=== PATIENT | female | born 1945 | race Caucasian/White ===

== ENCOUNTER → 2017-07-24 16:25 | Outpatient (CLI) | payer MEDICARE, SELFPAY ==
--- NOTE | 2017-07-24 16:36 | RAD_ITS ---
STUDY: X-RAY - ABDOMEN/PELVIS REASON FOR EXAM: Female, 71 years old. Abdominal pain. TECHNIQUE: AP supine and upright views of the abdomen and pelvis. COMPARISON: None. FINDINGS: Normal visualized lung bases. There is a moderate amount of colonic fecal material. There are nonspecific gaseous small bowel loops and colon. There is no demonstrated free abdominal air. The visualized liver, spleen and kidneys are grossly normal in size. There are surgical sutures in the mid abdomen and upper pelvic region. Normal visualized osseous structures. RAD/Abd Inc Decub and/or Erect IMPRESSION: Fecal retention. Nonspecific gas pattern. Electronically Signed: David Billings MD at 1:14 EST Tel , Service support ,
[2017-07-24 18:06] LABS: Absolute Neutrophil Count 3.9 X10^3/uL (2.0-7.7); Basophil# 0.02 X10^3/uL; Basophil% 0.3 % (0-1); Eosinophil# 0.06 X10^3/uL; Eosinophils% 0.9 % (0-5); Hematocrit 40.7 % (37-47); Hemoglobin 13.2 g/dl (12.0-15.0); Lymphocyte % 33.3 % (19-41); Mean Corp Hgb Conc 32.4 g/gl (32-36); Mean Corpuscular Hgb 30.3 pg (27.0-32.0); Mean Corpuscular Volume 93.3 fL (81-99); Mean Platelet Vol. 10.9 fl (6.2-12.0); Monocyte# 0.67 X10^3/uL; Monocyte% 9.7 % (0-10); Neutrophil # 3.86 X10^3/uL (2.7-7.7); Neutrophil % 55.8 % (47-70); Platelet Count 220 K/mm3 (150-450); RBC Distribution Width CV 13.3 % (11.6-14.6); RBC Distribution Width SD 45.1 fl (35.1-43.9); Red Blood Count 4.36 M/mm3 (4.2-5.4); White Blood Count 6.9 K/mm3 (4.4-11.0)
[2017-07-24 18:07] LABS: POSITIVE COUNT NO; POSITIVE DIFFERENTIAL NO; POSITIVE MORPHOLOGY NO
[2017-07-24 18:41] LABS: AST(SGOT) 17 U/L (15-37); Alanine Aminotransfer ALT/SGPT 23 U/L (13-56); Albumin, Serum 3.8 g/dL (3.2-5.0); Alkaline Phosphatase 59 U/L (45-117); Amylase 51 U/L (25-115); Anion Gap 7 (5-15); BUN 22 mg/dL (7-18); BUN/Creat Ratio 33.1 RATIO (10-20); Calcium,Total 8.9 mg/dL (8.5-10.1); Chloride 99 mmol/L (98-107); Creatinine, Serum 0.66 mg/dL (0.55-1.02); EST Glomerular Filtration Rate 93 mL/min (>60); Est Glom Filt Rate - Afr Amer 113 mL/min (>60); Glucose 103 mg/dL (74-106); Lipase 117 U/L (73-393); Potassium 4.1 mmol/L (3.5-5.1); Protein, Total 7.8 g/dL (6.4-8.2); Sodium Level 135 mmol/L (136-145); Thyroid Stim Hormone (TSH) 1.89 uIU/mL (0.358-3.74)
== END ==
PROVIDERS: Family Provider Family Medicine; PCP Family Medicine; Visit Provider Family Medicine
DX: R10.9 Unspecified abdominal pain (principal); R03.0 Elevated blood-pressure reading, without diagnosis of hypertension
CPT/HCPCS: 36415; 74019; 80053; 82150; 83690; 84443; 85025

== ENCOUNTER → 2017-08-28 12:25 | Outpatient (CLI) | payer MEDICARE, SELFPAY ==
--- NOTE | 2017-08-28 12:30 | HPBI_ITS ---
MAMMOGRAPHY - BILATERAL SCREENING REASON FOR EXAM: Female, 71 years old. Routine annual screening examination. PERTINENT HISTORY: Non-contributory. TECHNIQUE: Digital bilateral breast sondra (3D mammographic acquisition) in the CC and MLO projections. 2-D mediolateral oblique (MLO) and craniocaudad (CC) views of both breasts were obtained. CAD: Full Field Digital Mammography with Computer Added Detection was performed. COMPARISON: Comparison is made with prior study dated July 28, 2016 and April 06, 2015. FINDINGS: Breast Composition: The breasts are heterogeneously dense, which may obscure small masses. There are no dominant masses or suspicious calcifications. No other significant abnormalities are identified. There has been no significant change since the prior study. HPBI/SCREENING MAMM (CAD), BILAT IMPRESSION: Stable bilateral screening mammogram. Yearly follow-up mammogram recommended. (A) ASSESSMENT CATEGORY: BIRADS Category 1: Negative. A letter regarding these results will be sent to the patient by the facility within 30 days. Approximately 10% of breast cancers are not detected by mammography. A normal mammogram should not delay biopsy of a clinically suspicious abnormality. [id number] Electronically Signed: Bladimir Clark MD at 13:42 EDT Tel [phone], Service support ,
== END ==
PROVIDERS: Family Provider Family Medicine; PCP Family Medicine; Visit Provider Family Medicine
DX: Z12.31 Encounter for screening mammogram for malignant neoplasm of breast (principal)
CPT/HCPCS: 77063; 77067

== ENCOUNTER → 2017-10-24 09:32 | Outpatient (CLI) | payer MEDICARE, SELFPAY ==
--- NOTE | 2017-10-24 09:35 | BD_ITS ---
STUDY: DUAL ENERGY X-RAY ABSORPTIOMETRY / DXA REASON FOR EXAM: Female, 72 years old. The patient is postmenopausal. Loss of height. TECHNIQUE: Bone Mineral Density (BMD) measurements of lumbar spine and bilateral hips were obtained. COMPARISON: Comparison is made with prior study dated December 12, 2012. FINDINGS: Lumbar Spine (L1-L4): g/cm2 (0.791) / T-score (-3.2) / Z-score (-1.6) Findings are suggestive of osteoporosis with a high fracture risk. Left Femur Total: g/cm2 (0.797) / T-score (-1.7) / Z-score (-0.2) Left Femoral Neck: g/cm2 (0.744) / T-score (-2.1) / Z-score (-0.4) Right Femur Total: g/cm2 (0.776) / T-score (-1.8) / Z-score (-0.3) Right Femoral Neck: g/cm2 (0.726) / T-score (-2.2) / Z-score (-0.5) The T-Scores on the most recent prior examination were: Lumbar Spine (L1-L4): There has been worsening of bone density since the previous examination. Left Femur Total: which represents a worsening of 1.0%. Right Femur Total: which represents a worsening of 3.7%. BD/Dexa Bone Density Study IMPRESSION: The patient is considered osteoporotic as outlined below according to World [place] Organization (WHO) criteria with a high fracture risk. There has been worsening of bone density since the previous examination. Reference Information: The T-score is the number of standard deviations above or below the standard which is normal for young adults at their peak bone mineral density. The World Health Organization (WHO) interprets the T-scores as follows: Above -1 Normal bone density Between -1 and -2.5 Osteopenia Equal to / or below -2.5 Osteoporosis As a practical clinical guideline, osteopenia may be graded as follows: Mild -1 through -1.5 Moderate -1.6 through -2.0 Severe -2.1 through -2.4 The Z-score is the number of standard deviations above or below age-matched controls. A Z-score of less than -1.5 would be considered abnormal. References: 1. NIH Osteoporosis and Related Bone Diseases http://www.osteo.org 2. International Society for Clinical Densitometry http://www.iscd.org 3. National Osteoporosis Foundation http://www.nof.org Electronically Signed: Bladimir Clark MD at 13:43 EDT Tel [phone], Service support ,
== END ==
PROVIDERS: Family Provider Family Medicine; PCP Family Medicine; Visit Provider Family Medicine
DX: Z00.00 Encounter for general adult medical examination without abnormal findings (principal); Z78.0 Asymptomatic menopausal state
CPT/HCPCS: 77080

== ENCOUNTER → 2017-10-30 08:35 | Outpatient (CLI) | payer MEDICARE, SELFPAY ==
[2017-10-30 10:35] LABS: Anion Gap 7 (5-15); BUN 20 mg/dL (7-18); BUN/Creat Ratio 30.3 RATIO (10-20); Calcium,Total 8.8 mg/dL (8.5-10.1); Chloride 103 mmol/L (98-107); Cholesterol 180 mg/dL (200); Creatinine, Serum 0.66 mg/dL (0.55-1.02); EST Glomerular Filtration Rate 94 mL/min (>60); Est Glom Filt Rate - Afr Amer 113 mL/min (>60); Glucose 82 mg/dL (74-106); High Density Lipoprotein 65 mg/dL; Potassium 3.7 mmol/L (3.5-5.1); Sodium Level 139 mmol/L (136-145); Thyroid Stim Hormone (TSH) 2.48 uIU/mL (0.358-3.74); Triglycerides 48 mg/dL; Very Low Density Lipoprotein 10 mg/dL (5-40)
[2017-10-31 09:23] LABS: PTHIN 28.5 pg/mL (18.4-80.1)
[2017-10-31 09:32] LABS: Vitamin D,25 Hydroxy 81.3 ng/mL (29.95-100.01)
== END ==
PROVIDERS: Family Provider Family Medicine; PCP Family Medicine; Visit Provider Family Medicine
DX: Z00.00 Encounter for general adult medical examination without abnormal findings (principal); M81.0 Age-related osteoporosis without current pathological fracture; Z13.220 Encounter for screening for lipoid disorders
CPT/HCPCS: 36415; 80048; 80061; 82306; 82330; 83970; 84443

== ENCOUNTER → 2018-01-15 11:48 | Outpatient (CLI) | payer MEDICARE, SELFPAY ==
[2018-01-15 13:57] LABS: Hematocrit 40.3 % (37-47); Hemoglobin 13.4 g/dl (12.0-15.0); Mean Corp Hgb Conc 33.3 g/gl (32-36); Mean Corpuscular Hgb 30.7 pg (27.0-32.0); Mean Corpuscular Volume 92.4 fL (81-99); Mean Platelet Vol. 11.2 fl (6.2-12.0); Platelet Count 210 K/mm3 (150-450); RBC Distribution Width CV 13.3 % (11.6-14.6); RBC Distribution Width SD 45.2 fl (35.1-43.9); Red Blood Count 4.36 M/mm3 (4.2-5.4); White Blood Count 5.4 K/mm3 (4.4-11.0)
[2018-01-15 14:12] LABS: Scan Indicated on CBC? Y/N NO
[2018-01-15 14:21] LABS: Anion Gap 9 (5-15); BUN 13 mg/dL (7-18); BUN/Creat Ratio 20.9 RATIO (10-20); Chloride 99 mmol/L (98-107); Creatinine, Serum 0.62 mg/dL (0.55-1.02); EST Glomerular Filtration Rate 100 mL/min (>60); Erythrocyte Sedimentation Rate 22 mm/hr (0-30); Est Glom Filt Rate - Afr Amer 121 mL/min (>60); Glucose 86 mg/dL (74-106); Magnesium 2.3 mg/dL (1.6-2.6); Potassium 3.9 mmol/L (3.5-5.1); Sodium Level 137 mmol/L (136-145); Thyroid Stim Hormone (TSH) 2.38 uIU/mL (0.358-3.74)
[2018-01-16 08:38] LABS: Vitamin B12 412 pg/mL (211-911)
== END ==
PROVIDERS: Family Provider Family Medicine; PCP Family Medicine; Visit Provider Family Medicine
DX: R20.2 Paresthesia of skin (principal)
CPT/HCPCS: 36415; 80048; 82607; 83735; 84443; 85027; 85652

== ENCOUNTER → 2018-01-31 15:53 | Outpatient (CLI) | payer MEDICARE, SELFPAY | PROVIDERS: Family Provider Family Medicine; PCP Family Medicine; Visit Provider Family Medicine | DX: R20.2 Paresthesia of skin (principal) | CPT/HCPCS: 72110 ==

== ENCOUNTER → 2018-02-01 08:56 | Outpatient (CLI) | payer MEDICARE, SELFPAY | PROVIDERS: Family Provider Family Medicine; PCP Family Medicine; Visit Provider Family Medicine | DX: M79.605 Pain in left leg (principal); M79.604 Pain in right leg; I83.90 Asymptomatic varicose veins of unspecified lower extremity | CPT/HCPCS: 93970 ==

== ENCOUNTER 2018-08-16 14:17 | Outpatient (RCR) | payer MEDICARE, SELFPAY ==
--- NOTE | 2018-10-16 12:57 | HP.PTEVAL ---
Patient's Visit Information SANDRITA BERMUDEZ is a 73 year old F referred to Physical Therapy by Donn Castillo MD with a diagnosis of L shoulder pain. Date of Evaluation: 10/16/18 Physical Therapist: Shayne Sky DPT - Visit Plan Frequency: 1x/Week Duration: 1 Week Plan: Pt. was given HEP for RTC strengthening and stability. Pt. desires to work on exercises on own and progress to icnreased resistances as tolerated. - Subjective Findings: Pt. is here today for her initial evaluation with diagnosis of L shoulder pain. Pt. reports having increased pain after doing a lot of yard work. Pt. reports no radiating pain, but has pain if she moves her arm a certain way. Pt. denies N/T no raidating pain. Pt. has reports no neck pain as well. Pt. has not noticied any distal UE weakness. Pt. is back to most ADls and household work, but has incraesed soreness with all attempts. Pt. is hopeful to get back to all activities without limitations. - Pain L shoulder Pain Intensity (Out of 10): 0 Pain Intensity Range: 0, 2 - Objective POSTURE: Pt. has normal posture in stance. Normal shoulder heights. Slight scpaular protraction with increased thoracic kyphosis. PALPTION: pt. has tenderness along subacromial space adn bicipital groove. Pt. has no neck pain with palpation. NEURO: normal throughout. ROM: Neck- full without increase in symptoms. L shoulder- flexion 165deg mild increase NW, abd 145deg mild increase NW, functional ER C5, functional IR L2 mild increase NW. MMT: R shoulder- 4+/5 throughout. L shoulder- flexion 4/5 mild increase NW, abd 4/5 mild increase NW, ER 4+/5 mild increase NW, IR 5-/5 NE, ext 5/5 NE. - Special Tests L Shoulder Drop Sign - IS Test: Negative L Shoulder Empty Can - SS: Positive L Shoulder Belly Press - SupScap: Negative L Shoulder Neer - Impingement: Positive L Shoulder Funez Rhett - Impingement: Positive L Shoulder Biceps Load Test - Labrum: Negative - Goals Goal 1:: Pt. to be I with HEP. Goal Time Frame: 1 Week - Rehabilitation Potential Physical Therapy Diagnosis: Pt. has signs and symptoms consistent with RTC strain. Pt. has subacromial pain, but not marked weakness. Pt. has no radiating neck pain into UE. Pt. would benefit from HEP for shoulder/RTC stability program. Rehabilitation Potential: Excellent - Anticipated Interventions Patient/Client Instruction: Educate patient on: Condition, Plan of Care, Risk Factors, Benefits of Fitness Program For the Purpose of:: To facilitate caregiver knowledge, To improve self management, To prevent re-injury, To improve ability to perform tasks related to life management Therapeutic Exercise to Include: Strength training, Power training, Endurance training, Postural training, Flexibilty training, Passive ROM, Active ROM, Scapular Strength/Stabilization For the Purpose of:: To decrease pain, To decrease swelling/inflammation, To increase ROM, To improve nutrient delivery to tissue Thank you for the opportunity to evaluate your patient. For Medicare and Medicare HMO plans, please review the plan of care and approve it. It will need to be FAXED BACK to us at [phone] for Medicare purposes. For Medicare only, by signing this I certify the plan of care. Please let me know if there are questions or concerns regarding this plan of care. Physician Signature: Date:
--- NOTE | 2019-02-20 14:57 | HP.PT.NRP ---
HP - Discharge Summary (1) - Patient Information SANDRITA BERMUDEZ was seen in my office for initial evaluation on 10/16/18. The following Plan of Care was established for this patient: Initial Frequency: 1x/Week Initial Duration: 1 Week - Anticipated Interventions Patient/Client Instruction: Educate patient on: Condition, Plan of Care, Risk Factors, Benefits of Fitness Program For the Purpose of:: To facilitate caregiver knowledge, To improve self management, To prevent re-injury, To improve ability to perform tasks related to life management Therapeutic Exercise to Include: Strength training, Power training, Endurance training, Postural training, Flexibilty training, Passive ROM, Active ROM, Scapular Strength/Stabilization For the Purpose of:: To decrease pain, To decrease swelling/inflammation, To increase ROM, To improve nutrient delivery to tissue This patient was last seen in our office 08/16/18. Pertinent comments regarding their Physical therapy will appear below: Pt. was seen for her initial evaluation, but has not been seen since. Pt. will be DC from PT at this point intime. At this point I will be discontinuing this patient from physical therapy. I would be happy to see this patient again in the future if found appropriate by the physician. Thank you! Shayne Sky DPT
== END 2018-08-16 19:00 | disposition home or self-care (01) ==
LOC: PT 14:17
PROVIDERS: Family Provider Family Medicine; PCP Family Medicine; Referring Provider Family Medicine; Visit Provider Family Medicine
DX: M75.52 Bursitis of left shoulder (principal)
CPT/HCPCS: 97110; 97161

== ENCOUNTER → 2018-09-27 13:18 | Outpatient (CLI) | payer MEDICARE, SELFPAY ==
--- NOTE | 2018-09-27 13:21 | BI_ITS ---
MAMMOGRAPHY - BILATERAL SCREENING REASON FOR EXAM: Female, 72 years old. Routine annual screening examination. PERTINENT HISTORY: Non-contributory. TECHNIQUE: Digital bilateral breast sondra (3D mammographic acquisition) in the CC and MLO projections. 2-D mediolateral oblique (MLO) and craniocaudad (CC) views of both breasts were obtained. CAD: Full Field Digital Mammography with Computer Added Detection was performed. COMPARISON: Comparison is made with prior examination dated August 28, 2017 and July 28, 2016. FINDINGS: Breast Composition: The breasts are heterogeneously dense, which may obscure small masses. There are no dominant masses or suspicious calcifications. No other significant abnormalities are identified. There has been no significant change since the prior study. BI/SCREENING MAMM (CAD), BILAT IMPRESSION: Stable bilateral screening mammogram. Yearly follow-up mammogram recommended. (A) ASSESSMENT CATEGORY: BIRADS Category 1: Negative. A letter regarding these results will be sent to the patient by the facility within 30 days. Approximately 10% of breast cancers are not detected by mammography. A normal mammogram should not delay biopsy of a clinically suspicious abnormality. [id number] Electronically Signed: Bladimir Clark, at 14:57 EDT , Service support ,
== END ==
PROVIDERS: Family Provider Family Medicine; PCP Family Medicine; Referring Provider Family Medicine; Visit Provider Family Medicine
DX: Z12.31 Encounter for screening mammogram for malignant neoplasm of breast (principal)
CPT/HCPCS: 77063; 77067

== ENCOUNTER → 2019-04-25 15:42 | Outpatient (CLI) | payer MEDICARE, SELFPAY ==
[2019-04-25 18:01] LABS: Anion Gap 7 (5-15); BUN 14 mg/dL (7-18); BUN/Creat Ratio 20.6 RATIO (10-20); Calcium,Total 9.1 mg/dL (8.5-10.1); Chloride 101 mmol/L (98-107); Creatinine, Serum 0.68 mg/dL (0.55-1.02); EST Glomerular Filtration Rate 90 mL/min (>60); Est Glom Filt Rate - Afr Amer 109 mL/min (>60); Glucose 77 mg/dL (74-106); Potassium 3.9 mmol/L (3.5-5.1); Sodium Level 136 mmol/L (136-145); Thyroid Stim Hormone (TSH) 1.75 uIU/mL (0.358-3.74); Vitamin D,25 Hydroxy 39.2 ng/mL (29.95-100.01)
== END ==
PROVIDERS: Family Provider Family Medicine; PCP Family Medicine; Referring Provider Family Medicine; Visit Provider Family Medicine
DX: M81.0 Age-related osteoporosis without current pathological fracture (principal); R53.83 Other fatigue; E55.9 Vitamin D deficiency, unspecified
CPT/HCPCS: 36415; 80048; 82306; 84443

== ENCOUNTER → 2019-08-07 10:44 | Outpatient (CLI) | payer MEDICARE, SELFPAY ==
--- NOTE | 2019-08-07 10:48 | RAD_ITS ---
STUDY: X-RAY - PARANASAL SINUSES REASON FOR EXAM: Female, 73 years old. RHINITIS, LEFT SIDE TECHNIQUE: 3 view(s) of the paranasal sinuses were obtained. COMPARISON: None. FINDINGS: Normal visualized frontal, maxillary, ethmoidal and sphenoid sinuses. Normal visualized facial bones. The soft tissue structures are unremarkable. RAD/Sinuses min 3 Views IMPRESSION: No demonstrated sinus disease. Electronically Signed: Luis Baca MD at 8:29 EST Tel , Service support ,
== END ==
PROVIDERS: PCP Family Medicine; Referring Provider Family Medicine; Visit Provider Family Medicine
DX: J31.0 Chronic rhinitis (principal)
CPT/HCPCS: 70220

== ENCOUNTER → 2019-10-08 10:56 | Outpatient (CLI) | payer MEDICARE, SELFPAY ==
--- NOTE | 2019-10-08 10:58 | BI_ITS ---
MAMMOGRAPHY - BILATERAL SCREENING REASON FOR EXAM: Female, 74 years old. Routine annual screening examination. PERTINENT HISTORY: Non-contributory. TECHNIQUE: Digital bilateral breast leda (3D mammographic acquisition) in the CC and MLO projections. 2-D mediolateral oblique (MLO) and craniocaudad (CC) views of both breasts were obtained. CAD: Full Field Digital Mammography with Computer Added Detection was performed. COMPARISON: Comparison is made with prior examination dated September 27, 2018 and August 28, 2017. FINDINGS: Breast Composition: The breasts are heterogeneously dense, which may obscure small masses. There are no dominant masses or suspicious calcifications. No other significant abnormalities are identified. There has been no significant change since the prior study. BI/SCREEN MAMM (CAD) W/LEDA BILAT IMPRESSION: Stable bilateral screening mammogram. Yearly follow-up mammogram recommended. (A) ASSESSMENT CATEGORY: BIRADS Category 1: Negative. A letter regarding these results will be sent to the patient by the facility within 30 days. Approximately 10% of breast cancers are not detected by mammography. A normal mammogram should not delay biopsy of a clinically suspicious abnormality. [id number] Electronically Signed: Bladimir Clark, at 12:46 EDT , Service support ,
== END ==
PROVIDERS: Family Provider Family Medicine; PCP Family Medicine; Referring Provider Family Medicine; Visit Provider Family Medicine
DX: Z12.31 Encounter for screening mammogram for malignant neoplasm of breast (principal)
CPT/HCPCS: 77063; 77067

== ENCOUNTER → 2020-04-29 08:55 | Outpatient (CLI) | payer MEDICARE, SELFPAY ==
[2020-04-29 10:51] LABS: Vitamin D,25 Hydroxy 55.6 ng/mL
[2020-04-29 11:00] LABS: Anion Gap 5 (5-15); BUN 19 mg/dL (7-18); BUN/Creat Ratio 31.4 RATIO (10-20); Chloride 104 mmol/L (98-107); EST Glomerular Filtration Rate 103 mL/min (>60); Est Glom Filt Rate - Afr Amer 125 mL/min (>60); Glucose 82 mg/dL (74-106); Potassium 3.9 mmol/L (3.5-5.1); Sodium Level 138 mmol/L (136-145); Thyroid Stim Hormone (TSH) 2.71 uIU/mL (0.358-3.74)
== END ==
PROVIDERS: PCP Family Medicine; Referring Provider Family Medicine; Visit Provider Family Medicine
DX: M81.0 Age-related osteoporosis without current pathological fracture (principal)
CPT/HCPCS: 36415; 80048; 82306; 84443

== ENCOUNTER → 2020-05-18 12:37 | Outpatient (CLI) | payer MEDICARE, SELFPAY ==
--- NOTE | 2020-05-18 13:00 | BD_ITS ---
STUDY: DUAL ENERGY X-RAY ABSORPTIOMETRY / DXA REASON FOR EXAM: Female, 74 years old. Age of tito total hysterectomy age 31. Pat is 121.8# and 63 and quot; a loss of 1 and quot; per pat. Past hx of using fosamax for many yrs quit fosamax 6-7 yrs ago. Patient is currently taking Prolia x 4 injections now. Past hx of taking an HRT quit in 2005. Takes calcium and a multi-vit. Exercises a little to moderately. Fam hx of osteo. TECHNIQUE: Bone Mineral Density (BMD) measurements of lumbar spine and bilateral hips were obtained. COMPARISON: Comparison is made with prior study dated 10/24/2017. FINDINGS: Lumbar Spine (L1-L4): g/cm2 (0.837) / T-score (-2.9) / Z-score (-1.1) Findings are suggestive of osteoporosis with a high fracture risk. Left Femur Total: g/cm2 (0.806) / T-score (-1.6) / Z-score (0.1) Left Femoral Neck: g/cm2 (0.756) / T-score (-2.0) / Z-score (-0.2) Right Femur Total: g/cm2 (0.812) / T-score (-1.6) / Z-score (0.1) Right Femoral Neck: g/cm2 (0.73) / T-score (-2.2) / Z-score (-0.3) The T-Scores on the most recent prior examination were: Lumbar Spine (L1-L4): There has been improvement of bone density since the previous examination. Left Femur Total: which represents an improvement of 1.1%. Right Femur Total: which represents an improvement of 4.6%. BD/Dexa Bone Density Study IMPRESSION: The patient is considered osteopenic as outlined below according to World [place] Organization (WHO) criteria with a high fracture risk. There has been improvement of bone density since the previous examination. Reference Information: The T-score is the number of standard deviations above or below the standard which is normal for young adults at their peak bone mineral density. The World Health Organization (WHO) interprets the T-scores as follows: Above -1 Normal bone density Between -1 and -2.5 Osteopenia Equal to / or below -2.5 Osteoporosis As a practical clinical guideline, osteopenia may be graded as follows: Mild -1 through -1.5 Moderate -1.6 through -2.0 Severe -2.1 through -2.4 The Z-score is the number of standard deviations above or below age-matched controls. A Z-score of less than -1.5 would be considered abnormal. References: 1. NIH Osteoporosis and Related Bone Diseases www osteo.org 2. International Society for Clinical Densitometry www iscd.org 3. National Osteoporosis Foundation www nof.org Electronically Signed: Bladimir Clark, at 15:34 EST , Service support ,
== END ==
PROVIDERS: PCP Family Medicine; Referring Provider Family Medicine; Visit Provider Family Medicine
DX: M81.0 Age-related osteoporosis without current pathological fracture (principal)
CPT/HCPCS: 77080

== ENCOUNTER → 2020-06-30 15:37 | Outpatient (CLI) | payer MEDICARE, SELFPAY ==
--- NOTE | 2020-06-30 15:42 | RAD_ITS ---
STUDY: X-RAY - PELVIS AND BILATERAL HIPS REASON FOR EXAM: Female, 74 years old. BILATERAL HIP AND LOW BACK PAIN, NO INJURY TECHNIQUE: AP view of the pelvis.? 2 views of the right hip, and 2 views of the left hip were obtained. COMPARISON: None. FINDINGS: There is a non-specific bowel gas pattern. Normal visualized soft tissue structures. Normal bilateral iliac wings, sacroiliac joints and visualized sacrum. Normal bilateral superior and inferior pubic rami. Normal pubic symphysis. Normal bilateral ischial tuberosities. Normal visualized right femoral head. Normal right acetabulum. There is mild articular joint space narrowing of the right hip. Normal visualized left femoral head. Normal left acetabulum. There is mild articular joint space narrowing of the left hip. RAD/Hips B/L min 2 views w/ Pelvis IMPRESSION: Mild degenerative arthrosis of the hips. Essentially normal for age. Electronically Signed: Shalini Berger MD at 16:27 EST , Service support ,
--- NOTE | 2020-06-30 15:43 | RAD_ITS ---
STUDY: X-RAY - LUMBAR SPINE REASON FOR EXAM: Female, 74 years old. BILATERAL HIP AND LOW BACK PAIN, NO INJURY TECHNIQUE: 5 view(s) of the lumbar spine were obtained. COMPARISON: Prior lumbar spine radiographs of 01/31/2018 FINDINGS: Normal lumbar lordosis. There is no substantial scoliosis. There is a normal alignment of the vertebrae. Normal vertebral bodies and endplates. Minimal/mild degenerative disc narrowing. Minimal spondylitic endplate changes at L2-3. Mild facet arthrosis at L4-5. The soft tissue structures are unremarkable. RAD/L/S Spine Min 4 Views IMPRESSION: Normal alignment of lumbar spine without fracture, osteolytic or blastic bone lesion. Mild degenerative changes stable from prior exam. Electronically Signed: Shalini Berger MD at 16:34 EST , Service support ,
== END ==
PROVIDERS: PCP Family Medicine; Referring Provider Family Medicine; Visit Provider Family Medicine
DX: M25.552 Pain in left hip (principal); M25.551 Pain in right hip
CPT/HCPCS: 72110; 73521

== ENCOUNTER 2020-07-09 14:47 | Outpatient (RCR) | payer MEDICARE, SELFPAY ==
--- NOTE | 2020-07-12 08:40 | HP.PTEVAL_ITS ---
Patient's Visit Information SANDRITA BERMUDEZ is a 74 year old F referred to Physical Therapy by Dr. Donn Castillo MD with a diagnosis of B hip pain. Date of Evaluation: 07/09/20 Physical Therapist: Shayne Sky DPT - Visit Plan Frequency: 1x/Week Duration: 4 Weeks Plan: Start with BLE and core strengthening exercises. Pt. desires to complete at home. I reinforced some of the exercises given by physician and refined them a bit. Pt. to trial on own for 2-3 weeks and follow up with PT or MD as needed. - Subjective Pt. is here today for her initial evaluation with diagnosis of B hip pain. Pt. 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 Pt. reports having pain in her R hip abd groin since. Pt. denies N/T in either LE. Pt. did have an xray for B hips and lumbar spine both showing age appropriate degeneration. Pt. has tried OTC with minimal response. Pt. has stopped doing exercises adn walking due to fear of increasing symptoms. Pt. reports she is used to walking 3+ miles per day, but is now staying home most of the time. She is also not doing the exercises the doctor provided her due to fear of increasing her symptoms. Pt. reports her symptoms are getting a litle bit better. Pt. 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 - Pain R groin Pain Intensity (Out of 10): 3 Pain Intensity Range: 1, 5 - Objective POSTURE: Pt. has normal posture in stance. Pt. has good iliac crest heights, good lumbar positioning. PALPATION: Pt. has slight tenderness to lumbar spine, no pain at anterior hip or lateral hips bilaterally. NEURO: Normal DTR and normal sensation throughout. Pt. is able to walking on heels/toes without issues. ROM: Pt. has good of her lumbar spine: flexion normal no increase in symptoms, extension min loss (tightness noted) SB nomal no increase in symptoms. Rotation- normal no increase in symptoms. MMT: RLE- ankle 5/5 throughout; knee- 5/5 throughout; hip- flexion 4+/5, abd 4/5, ext 4/5. LLE- ankle 5/5 throughout; knee- 5/5 throughout; hip- flexion 4+/5, abd 4/5, ext 4/5. Core strength- poor+. GAIT: Pt. has slight lateral hip translation. Normal step length, normal arm swing. STAIRS: normal. - Special Tests Lumbar Standing: Flexion - Mechanical Response: No effect Lumbar Standing: Flexion - Symptoms During Testing: No effect Lumbar Standing: Flexion - Symptoms After Testing: No effect Lumbar Standing: Extension - Mechanical Response: No effect Lumbar Standing: Extension - Symptoms During Testing: Increases Lumbar Standing: Extension - Symptoms After Testing: No effect Lumbar Standing: Right Side Glides - Mechanical Response: No effect Lumbar Standing: Right Side [place] - Symptoms During Testing: No effect Lumbar Standing: Right Side [place] - Symptoms After Testing: No effect Lumbar Standing: Left Side [place] - Mechanical Response: No effect Lumbar Standing: Left Side [place] - Symptoms During Testing: No effect Lumbar Standing: Left Side [place] - Symptoms After Testing: No effect Lumbar Lying: Extension - Mechanical Response: No effect Lumbar Lying: Extension - Symptoms During Testing: No effect Lumbar Lying: Extension - Symptoms After Testing: No effect R Hip Scour: Negative R Hip Quadrant - Intraarticular Pathology: Negative R Hip DIANA - Intraarticular Pathology: Negative R Hip FADDIR - Labrum: Negative R Hip Balbir - IT Band: Negative L Hip Scour: Negative L Hip DIANA - Intraarticular Pathology: Negative L Hip FADDIR - Labrum: Negative L Hip Trendelenberg - Glut Medius: Negative L Hip Balbir - IT Band: Negative - Goals Goal 1:: LTG: Pt. to be I with HEP. Goal Time Frame: 4-6 Weeks Goal 2:: STG: Pt. to get back to walking upto 3 miles without increase in symptoms. Goal Time Frame: 2-4 Weeks Goal 3:: LTG: pt. to have increased BLE and core strength by 1/2 grade to reduce stress applied to lumbar spine and B hips. Goal Time Frame: 4-6 Weeks Goal 4:: LTG: Pt. to have full motion of lumbar spine and b hips without increase in symptoms. Goal Time Frame: 4-6 Weeks - Rehabilitation Potential Physical Therapy Diagnosis: Pt. has signs of bilateral hip pain. Pt. was describing pain mostly at R hip that does radiate anteriorly at times. Today her pain was mild in nature. Pt. had no signs of increased pain due to hip arthritis. She was a little limited with he lumbar extension. I built on the exercises that the doctor already gave her. I refiend them to narrow down to target areas a bit. Pt. would benefit from lumbar and B hip strengthening and weaning back into all recreational and fitness activities. Rehabilitation Potential: Good - Anticipated Interventions Patient/Client Instruction: Educate patient on: Condition, Plan of Care, Risk Factors, Benefits of Fitness Program For the Purpose of:: To improve self management, To prevent re-injury, To improve ability to perform tasks related to life management, To improve tolerance to ADL's Therapeutic Exercise to Include: Strength training, Power training, Endurance training, Balance training, Postural training, Flexibilty training, via [employer] Balance Mas, Active ROM, Dynamic Lumbar Stabilization For the Purpose of:: To decrease pain, To increase ROM, To improve nutrient delivery to tissue, To increase oxygenation perfusion, To improve muscle perf ormance and motor function, To improve ability to perform ADL's, To improve health of tissue, To decrease soft tissue restriction Thank you for the opportunity to evaluate your patient. For Medicare and Medicare HMO plans, please review the plan of care and approve it. It will need to be FAXED BACK to us at [phone] for Medicare purposes. For Medicare only, by signing this I certify the plan of care. Please let me know if there are questions or concerns regarding this plan of care. Physician Signature: Date:__
== END 2020-07-09 19:00 | disposition home or self-care (01) ==
LOC: PT 14:47
PROVIDERS: PCP Family Medicine; Referring Provider Family Medicine; Visit Provider Family Medicine
DX: M25.551 Pain in right hip (principal); M25.552 Pain in left hip
CPT/HCPCS: 97110; 97161

== ENCOUNTER → 2021-02-15 12:20 | Outpatient (CLI) | payer MEDICARE, SELFPAY ==
--- NOTE | 2021-02-15 12:22 | BI_ITS ---
MAMMOGRAPHY - BILATERAL SCREENING 3-D TOMOSYNTHESIS REASON FOR EXAM: Female, 75 years old. SCREENING PERTINENT HISTORY: No significant family history. TECHNIQUE: 2-D mammograms and 3-D Tomosynthesis of the breast (s) were performed. CAD was performed. COMPARISON: 10/08/2019 FINDINGS: The breast composition is Extermely dense tissue. Scattered benign calcifications are seen. No dense spiculated masses or suspicious microcalcifications are identified. No architectural distortion is identified. There is no skin thickening or retraction. There has been no significant change since the prior study. BI/SCREENING MAMM (CAD), BILAT IMPRESSION: No mammographic signs of malignancy. Routine yearly mammograms recommended. ASSESSMENT CATEGORY: BIRADS Category 1: Negative. A letter regarding these results will be sent to the patient by the facility within 30 days. FOLLOW UP RECOMMENDATION: Yearly follow up mammogram recommended. (A) Approximately 10% of breast cancers are not detected by mammography. A normal mammogram should not delay biopsy of a clinically suspicious abnormality. Electronically Signed: Franco Augustine MD at 17:13 EDT Tel , Service support ,
== END ==
PROVIDERS: PCP Family Medicine; Referring Provider Family Medicine; Visit Provider Family Medicine
DX: Z12.31 Encounter for screening mammogram for malignant neoplasm of breast (principal)
CPT/HCPCS: 77067

== ENCOUNTER 2021-06-21 10:54 | Outpatient (CLI) | payer MEDICARE, SELFPAY ==
[2021-06-21 11:02] VITALS: BP 186/84; PULSE 91; RESP 16; TEMP 36.6; O2SAT 100; BMI 21.2
[2021-06-21] MEDS: 0.9% Saline Lock 10 ML Syringe IV (11:19)
[2021-06-21 12:02] VITALS: BP 158/89; PULSE 78; RESP 16; TEMP 36.4; O2SAT 99
[2021-06-21 13:14] VITALS: BP 183/89; PULSE 76; RESP 16; TEMP 36.2; O2SAT 97
== END 2021-06-21 23:59 | disposition home or self-care (01) ==
LOC: MS3OUT 10:55 → MS3 11:02
PROVIDERS: PCP Family Medicine; Referring Provider Nurse Practitioner Adult Health; Visit Provider Nurse Practitioner Adult Health
DX: Z23 Encounter for immunization (principal); U07.1 COVID-19
CPT/HCPCS: J7050; M0243; A4216; Q0240

== ENCOUNTER 2021-08-03 08:10 | Outpatient (CLI) | payer MEDICARE, SELFPAY ==
[2021-08-03 11:00] LABS: PTHIN 36.3 pg/mL (18.4-80.1)
[2021-08-03 11:03] LABS: Vitamin D,25 Hydroxy 47.4 ng/mL
[2021-08-03 11:09] LABS: Anion Gap 5 (5-15); BUN 16 mg/dL (7-18); BUN/Creat Ratio 25.4 RATIO (10-20); Calcium,Total 9.3 mg/dL (8.5-10.1); Chloride 104 mmol/L (98-107); Creatinine, Serum 0.63 mg/dL (0.55-1.02); EST Glomerular Filtration Rate 98 mL/min (>60); Est Glom Filt Rate - Afr Amer 119 mL/min (>60); Glucose 84 mg/dL (74-106); Magnesium 2.5 mg/dL (1.6-2.6); Sodium Level 137 mmol/L (136-145); Thyroid Stim Hormone (TSH) 2.95 uIU/mL (0.358-3.74)
== END 2021-08-03 23:59 | disposition home or self-care (01) ==
LOC: MFPLAB 08:11
PROVIDERS: PCP Family Medicine; Referring Provider Family Medicine; Visit Provider Family Medicine
DX: Z13.220 Encounter for screening for lipoid disorders (principal); M81.0 Age-related osteoporosis without current pathological fracture
CPT/HCPCS: 36415; 80048; 82306; 83735; 83970; 84443

== ENCOUNTER → 2022-03-20 | Outpatient (CLI) | payer MEDICARE, SELFPAY ==
--- NOTE | 2022-03-20 13:16 | BI_ITS ---
MAMMOGRAPHY - BILATERAL SCREENING REASON FOR EXAM: Female, 76 years old. Routine annual screening examination. PERTINENT HISTORY: Non-contributory. Chronic left nipple inversion. TECHNIQUE: Digital bilateral breast leda (3D mammographic acquisition) in the CC and MLO projections. 2-D mediolateral oblique (MLO) and craniocaudad (CC) views of both breasts were obtained. CAD: Full Field Digital Mammography with Computer Added Detection was performed. COMPARISON: Comparison is made with prior study 02/15/2021 and 10/08/2019. FINDINGS: Breast Composition: The breasts are extremely dense, which lowers the sensitivity of mammography. There are no dominant masses or suspicious calcifications. No other significant abnormalities are identified. There has been no significant change since the prior study. BI/SCRN MAMM (CAD)W/LEDA BILAT IMPRESSION: Stable bilateral screening mammogram. Yearly follow-up mammogram recommended. (A) ASSESSMENT CATEGORY: BIRADS Category 1: Negative. A letter regarding these results will be sent to the patient by the facility within 30 days. Approximately 10% of breast cancers are not detected by mammography. A normal mammogram should not delay biopsy of a clinically suspicious abnormality. [id number] Electronically Signed: Bladimir Clark MD at 14:39 EDT ,
== END | disposition home or self-care (01) ==
LOC: OPBI 13:14
PROVIDERS: PCP Family Medicine; Visit Provider Family Medicine
DX: Z12.31 Encounter for screening mammogram for malignant neoplasm of breast (principal)
CPT/HCPCS: 77063; 77067

== ENCOUNTER → 2022-06-01 | Outpatient (CLI) | payer MEDICARE, SELFPAY ==
--- NOTE | 2022-06-01 14:41 | CT_ITS ---
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 A radiation dose optimization technique was used for this scan. COMPARISON: None. FINDINGS: No pathologically enlarged lymph nodes. No abscess. No retropharyngeal fluid. The epiglottis is normal in appearance. No acute fracture. Anterolisthesis of C4 over C5. CT/Soft Tissue Neck WITH Contrast IMPRESSION: No significant abnormality. Electronically Signed: Akash Schroeder MD at 3:48 EST ,
--- NOTE | 2022-06-01 14:41 | CT_ITS ---
STUDY: CT CHEST, ABDOMEN T PELVIS WITH CONTRAST REASON FOR EXAM: Female, 76 years old. IV ONLY-MONITOR MELANOMA RADIATION DOSAGE (If Supplied By Facility): CTDIvol = ( 8.32 ) mGy, DLP = ( 743.79 ) mGycm TECHNIQUE: Transaxial imaging was performed following intravenous administration of IV 100mL Isovue-300. Individualized dose optimization techniques were used for this CT. COMPARISON: No relevant priors. FINDINGS: CHEST Bibasilar congestion. Biapical pleural-parenchymal scarring. There is no demonstrated pleural abnormality. Normal heart and pericardium. Normal mediastinum. Normal hilar regions. Normal unenhanced pulmonary arteries. Normal aorta arch and descending thoracic aorta. Normal osseous structures. ABDOMEN Normal liver. Normal gallbladder and extrahepatic biliary system. Normal spleen. Normal pancreas. Normal bilateral adrenal glands. Normal right kidney. Normal left kidney. Radiodense pills noted within the stomach. Normal small intestine. Normal colon. Appendix not identified. Normal abdominal aorta. Normal inferior vena cava. Normal retroperitoneum. Metallic sutures anterior abdominal wall. Normal osseous structures. PELVIS Normal urinary bladder. Normal visualized small intestine. Normal visualized colon. There is no pelvic fluid. There is no pelvic lymphadenopathy or mass lesion. Normal visualized pelvic arteries. Normal abdominal wall. Normal osseous structures. CT/CT Chest, Abd, Pel w/Contrast IMPRESSION: Normal enhanced CT chest, abdomen T pelvis examination. Electronically Signed: Jamie Valderrama MD at 0:01 EST ,
== END | disposition home or self-care (01) ==
LOC: CT 14:40
PROVIDERS: PCP Family Medicine; Referring Provider Internal Medicine Medical Oncology; Visit Provider Internal Medicine Medical Oncology
DX: D03.9 Melanoma in situ, unspecified (principal); J98.4 Other disorders of lung
CPT/HCPCS: 70491; 71260; 74177; Q9967

== ENCOUNTER → 2022-07-24 | Outpatient (CLI) | payer MEDICARE, SELFPAY ==
[2022-07-24 10:46] LABS: PTHIN 27.6 pg/mL (18.4-80.1)
[2022-07-24 10:49] LABS: Vitamin D,25 Hydroxy 49.8 ng/mL
[2022-07-24 10:56] LABS: Anion Gap 8 (5-15); BUN 16 mg/dL (7-18); BUN/Creat Ratio 28.4 RATIO (10-20); Calcium,Total 9.4 mg/dL (8.5-10.1); Chloride 104 mmol/L (98-107); Creatinine, Serum 0.56 mg/dL (0.55-1.02); EST Glomerular Filtration Rate 111 mL/min (>60); Est Glom Filt Rate - Afr Amer 135 mL/min (>60); Glucose 87 mg/dL (74-106); Sodium Level 136 mmol/L (136-145)
[2022-07-28 09:24] LABS: Cholesterol 203 mg/dL (200); High Density Lipoprotein 59 mg/dL; Thyroid Stim Hormone (TSH) 3.12 uIU/mL (0.358-3.74); Triglycerides 103 mg/dL; Very Low Density Lipoprotein 21 mg/dL (5-40)
== END | disposition home or self-care (01) ==
LOC: MFPLAB 09:07
PROVIDERS: PCP Family Medicine; Referring Provider Family Medicine; Visit Provider Family Medicine
DX: E55.9 Vitamin D deficiency, unspecified (principal); M81.0 Age-related osteoporosis without current pathological fracture; Z13.220 Encounter for screening for lipoid disorders
CPT/HCPCS: 36415; 80048; 80061; 82306; 82330; 83970; 84443

== ENCOUNTER → 2022-08-03 | Outpatient (CLI) | payer MEDICARE, SELFPAY ==
--- NOTE | 2022-08-03 14:01 | BD_ITS ---
STUDY: DUAL ENERGY X-RAY ABSORPTIOMETRY / DXA REASON FOR EXAM: Female, 76 years old. [id number] TECHNIQUE: Bone Mineral Density (BMD) measurements of lumbar spine and bilateral hips were obtained. COMPARISON: Comparison is made with prior study dated 05/18/2020. FINDINGS: Lumbar Spine (L1-L4): g/cm2 (0.675) / T-score (-3.1) / Z-score (-0.7) Findings are suggestive of osteoporosis with a high fracture risk. Left Femur Total: g/cm2 (0.770) / T-score (-1.4) / Z-score (0.4) Left Femoral Neck: g/cm2 (0.625) / T-score (-2.0) / Z-score (0.1) Right Femur Total: g/cm2 (0.742) / T-score (-1.6) / Z-score (0.2) Right Femoral Neck: g/cm2 (0.605) / T-score (-2.2) / Z-score (-0.1) The T-Scores on the most recent prior examination were: Lumbar Spine (L1-L4): There has been worsening of bone density since the previous examination. Left Femur Total: which represents an improvement of 3.2%. Right Femur Total: which represents a worsening of 1.3%. BD/Dexa Bone Density Study IMPRESSION: The patient is considered osteoporotic as outlined below according to [employer] [place] Organization (WHO) criteria with a high fracture risk. There has been worsening of bone density since the previous examination. Reference Information: The T-score is the number of standard deviations above or below the standard which is normal for young adults at their peak bone mineral density. The World Health Organization (WHO) interprets the T-scores as follows: Above -1 Normal bone density Between -1 and -2.5 Osteopenia Equal to / or below -2.5 Osteoporosis As a practical clinical guideline, osteopenia may be graded as follows: Mild -1 through -1.5 Moderate -1.6 through -2.0 Severe -2.1 through -2.4 The Z-score is the number of standard deviations above or below age-matched controls. A Z-score of less than -1.5 would be considered abnormal. References: 1. NIH Osteoporosis and Related Bone Diseases www osteo.org 2. International Society for Clinical Densitometry www iscd.org 3. National Osteoporosis Foundation www nof.org Electronically Signed: Bladimir Clark MD at 15:32 EST ,
== END | disposition home or self-care (01) ==
LOC: OPBD 13:53
PROVIDERS: PCP Family Medicine; Referring Provider Family Medicine; Visit Provider Family Medicine
DX: Z00.00 Encounter for general adult medical examination without abnormal findings (principal); Z78.0 Asymptomatic menopausal state
CPT/HCPCS: 77080

== ENCOUNTER → 2023-01-24 | Outpatient (CLI) | payer MEDICARE, SELFPAY ==
[2023-01-26 22:07] LABS: B. pertussis IgG 1.39 index (0.00-0.94)
== END | disposition home or self-care (01) ==
PROVIDERS: PCP Family Medicine; Referring Provider Family Medicine; Visit Provider Family Medicine
DX: R05.9 Cough, unspecified (principal)
CPT/HCPCS: 36415; 86615

== ENCOUNTER → 2023-04-12 | Outpatient (CLI) | payer MEDICARE, SELFPAY ==
--- NOTE | 2023-04-12 13:11 | BI_ITS ---
MAMMOGRAPHY - BILATERAL SCREENING REASON FOR EXAM: Female, 77 years old. Routine annual screening examination. PERTINENT HISTORY: Non-contributory. Chronic left nipple inversion. TECHNIQUE: Digital bilateral breast sondra (3D mammographic acquisition) in the CC and MLO projections. 2-D mediolateral oblique (MLO) and craniocaudad (CC) views of both breasts were obtained. CAD: Full Field Digital Mammography with Computer Added Detection was performed. COMPARISON: Comparison is made with prior study March 20, 2022 and February 15, 2021. FINDINGS: Breast Composition: The breasts are extremely dense, which lowers the sensitivity of mammography. There are no dominant masses or suspicious calcifications. No other significant abnormalities are identified. There has been no significant change since the prior study. BI/SCREENING MAMM (CAD), BILAT IMPRESSION: Stable bilateral screening mammogram. Yearly follow-up mammogram recommended. (A) ASSESSMENT CATEGORY: BIRADS Category 1: Negative. A letter regarding these results will be sent to the patient by the facility within 30 days. Approximately 10% of breast cancers are not detected by mammography. A normal mammogram should not delay biopsy of a clinically suspicious abnormality. [id number] Electronically Signed: Bladimir Clark MD at 14:00 EDT ,
== END | disposition home or self-care (01) ==
LOC: OPBI 13:09
PROVIDERS: PCP Family Medicine; Referring Provider Family Medicine; Visit Provider Family Medicine
DX: Z12.31 Encounter for screening mammogram for malignant neoplasm of breast (principal)
CPT/HCPCS: 77067

== ENCOUNTER → 2023-09-11 | Outpatient (CLI) | payer MEDICARE, SELFPAY ==
--- NOTE | 2023-09-11 14:15 | RAD_ITS ---
STUDY: X-RAY CHEST REASON FOR EXAM: Female, 77 years old. Cough TECHNIQUE: PA and lateral views of the chest. COMPARISON: None. FINDINGS: There is hyperinflation of the lungs consistent with chronic obstructive lung disease (COPD). There is no demonstrated pleural abnormality. Normal size heart. Normal mediastinum and luisana. There is prominence of the pulmonary hilar arteries without peripheral pulmonary vascular congestion, suggesting pulmonary hypertension. Normal visualized aortic arch and descending thoracic aorta. Normal visualized thoracic spine. Normal visualized ribs, clavicles, and shoulders. There is no demonstrated abnormality of the visualized soft tissue structures of the upper abdomen. RAD/Chest PA and Lateral IMPRESSION: Hyperinflation and COPD. There is prominence of the central pulmonary arteries. Electronically Signed: Bladimir Clark MD at 13:01 EDT ,
== END | disposition home or self-care (01) ==
LOC: MTRAD 14:10
PROVIDERS: PCP Family Medicine; Referring Provider Family Medicine; Visit Provider Family Medicine
DX: R05.9 Cough, unspecified (principal)
CPT/HCPCS: 71046

== ENCOUNTER → 2024-03-17 | Outpatient (CLI) | payer MEDICARE, SELFPAY ==
[2024-03-17 16:52] LABS: AST(SGOT) 21 U/L (15-37); Alanine Aminotransfer ALT/SGPT 25 U/L (13-56); Albumin, Serum 3.7 g/dL (3.2-5.0); Alkaline Phosphatase 64 U/L (45-117); Anion Gap 7 (5-15); BUN 21 mg/dL (7-18); BUN/Creat Ratio 30.9 RATIO (10-20); Calcium,Total 9.6 mg/dL (8.5-10.1); Chloride 101 mmol/L (98-107); Creatinine, Serum 0.68 mg/dL (0.55-1.02); EST Glomerular Filtration Rate 89 mL/min (>60); Est Glom Filt Rate - Afr Amer 108 mL/min (>60); Globulin 3.6 g/dL (2.2-4.2); Glucose 96 mg/dL (74-106); Protein, Total 7.3 g/dL (6.4-8.2); Sodium Level 136 mmol/L (136-145)
[2024-03-17 16:54] LABS: Vitamin D,25 Hydroxy 60.2 ng/mL
== END | disposition home or self-care (01) ==
LOC: LAB 15:09
PROVIDERS: PCP Family Medicine; Referring Provider Internal Medicine Endocrinology, Diabetes & Metabolism; Visit Provider Internal Medicine Endocrinology, Diabetes & Metabolism
DX: M81.0 Age-related osteoporosis without current pathological fracture (principal); E55.9 Vitamin D deficiency, unspecified
CPT/HCPCS: 36415; 80053; 82306

== ENCOUNTER → 2024-04-16 | Outpatient (CLI) | payer MEDICARE, SELFPAY ==
--- NOTE | 2024-04-16 12:54 | BI_ITS ---
MAMMOGRAPHY - BILATERAL SCREENING REASON FOR EXAM: Female, 78 years old. Routine annual screening examination. PERTINENT HISTORY: Non-contributory. Chronic inversion of the left areola. TECHNIQUE: Digital bilateral breast leda (3D mammographic acquisition) in the CC and MLO projections. 2-D mediolateral oblique (MLO) and craniocaudad (CC) views of both breasts were obtained. CAD: Full Field Digital Mammography with Computer Added Detection was performed. COMPARISON: Comparison is made with prior study April 12, 2023 and March 20, 2022. FINDINGS: Breast Composition: The breasts are extremely dense, which lowers the sensitivity of mammography. There are no dominant masses or suspicious calcifications. No other significant abnormalities are identified. There has been no significant change since the prior study. BI/SCRN MAMM (CAD)W/LEDA BILAT IMPRESSION: Stable bilateral screening mammogram. Yearly follow-up mammogram recommended. (A) ASSESSMENT CATEGORY: BIRADS Category 1: Negative. A letter regarding these results will be sent to the patient by the facility within 30 days. Approximately 10% of breast cancers are not detected by mammography. A normal mammogram should not delay biopsy of a clinically suspicious abnormality. [id number] Electronically Signed: Bladimir Clark MD at 14:00 EDT ,
== END | disposition home or self-care (01) ==
LOC: OPBI 12:51
PROVIDERS: PCP Family Medicine; Referring Provider Family Medicine; Visit Provider Family Medicine
DX: Z12.31 Encounter for screening mammogram for malignant neoplasm of breast (principal)
CPT/HCPCS: 77063; 77067

== ENCOUNTER → 2025-04-02 | Outpatient (CLI) | payer MEDICARE, SELFPAY ==
--- NOTE | 2025-04-02 13:30 | BD_ITS ---
PROCEDURE: DEXA BONE DENSITY STUDY 04/02/2025 REASON FOR EXAM: OSTEOPOROSIS F, age 79 y/o . Postmenopausal. TECHNIQUE: Procedure Code: BDDBD Modality: DX Procedure: DEXA BONE DENSITY STUDY COMPARISON: Prior study dated August 03, 2022. FINDINGS: BMD and T-SCORES Lumbar spine: 0.669 g/cm2, T-score -3.2 Levels: L1 through L4 Change from prior: Loss of 0.9%. Left femoral neck: 0.579 g/cm2, T-score -2.4 Femoral neck comparison data not recommended for monitoring change. Left total hip: 0.711 g/cm2, T-score -1.9 Change from prior: Loss of 7.6%. Right femoral neck: 0.570 g/cm2, T-score -2.5 Femoral neck comparison data not recommended for monitoring change. Right total hip: 0.708 g/cm2, T-score -1.9 Change from prior: Loss of 4.6%. The World Health Organization has defined the following categories based on bone density: Normal bone density: T-score equal to or greater than -1.0 Osteopenia: T-score between -1.0 and -2.5 Osteoporosis: T-score equal to or less than -2.5 FRAX (or Comparable) Fracture Risk Assessment: 10 Year Probability of Fracture: Major Osteoporotic Fracture: 17% Hip Fracture: 5.7% (Note: FRAX is not to be reported in setting of normal range bone density, osteoporosis on DEXA, known history of osteoporosis, prior osteoporotic hip or vertebral fracture, or for any patient undergoing pharmacological treatment for bone loss.) The National Osteoporosis Foundation (NOF) recommends pharmacological treatment for patients with a FRAX 10-year risk of 3% or higher for a hip fracture, or 20% or higher for a major osteoporotic fracture, to prevent osteoporosis and reduce fracture risk. The patient does meet the pharmacological treatment recommendations for prevention of osteoporosis. BD/Dexa Bone Density Study IMPRESSION: OSTEOPOROSIS. Recommend follow-up as clinically warranted. Reading Location: [place] [id number]
--- OUTSIDE RECORDS SUMMARY | 2025-04-02 13:48 | XMS RPT_ITS | CCD ---
Author Organization [facility] Care Team Providers Care Ortho Nurse Name Role Phone Carey PRITCHARD Unavailable Unavailable Dr. Donn Castillo Primary Care Provider Dr. Donn Castillo Referring Provider Dr. Jos Hester Attending Provider [phone] Donn Castillo Primary Care Provider Dr. Donn Castillo Referring Provider Dr. Jos Hester Attending Provider Dr. Jatinder Turpin Attending Provider Dr. Donn Castillo Primary Care Provider Dr. Donn Castillo Referring Provider Dr. Donn Castillo Primary Care Provider Dr. Jos Hester Attending Provider [phone] Donn Castillo Primary Care Provider Dr. Donn Castillo Referring Provider Dr. Jos Hester Attending Provider Alistair Castillo Primary Care Unavailable Alistair Castillo Attending Unavailable Alistair Castillo Referring Unavailable Jos Hester Attending Unavailable Jos Hester Referring Unavailable Alistair Castillo Primary Care Unavailable Medications Current Medications Medication Drug Class(es) Dates Sig (Normalized) Sig (Original) aspirin 81 mg delayed release oral tablet (6 sources) Platelet Aggregation Inhibitor, Nonsteroidal Anti-inflammatory Drug Start: 02-27-2022 Aspirin (Adult Low Dose Aspirin) 81 mg tablet,delayed release (DR/EC) Active 81 MG PO DAILY February 27, 2022 12:00am biotin 5 mg disintegrating oral tablet (12 sources) Start: 03-16-2022 take 5000 ug by mouth once daily Biotin Active 5000 MCG PO DAILY March 16, 2022 10:56am Start: 02-27-2022 End: 03-16-2022 take 84252 ug by mouth once daily Biotin Discontinued 30950 MCG PO DAILY February 27, 2022 12:00am March 16, 2022 10:56am calcium ascorbate 500 mg oral tablet (6 sources) Start: 02-27-2022 take 500 mg by mouth once daily Ascorbate Calcium (Vitamin C) Active 500 MG PO DAILY February 27, 2022 12:00am calcium citrate 1500 mg / cholecalciferol 250 unt oral tablet (6 sources) Vitamin D Start: 02-27-2022 take 1 tablet by mouth once daily Calcium Citrate-Vitamin D3 Active 1 TABLET PO DAILY February 27, 2022 12:00am cholecalciferol 0.025 mg oral capsule (6 sources) Vitamin D Start: 02-27-2022 take 25 ug by mouth once daily Cholecalciferol (Vitamin D3) Active 25 MCG PO DAILY February 27, 2022 12:00am 1 ml denosumab 60 mg/ml prefilled syringe (14 sources) RANK Ligand Inhibitor Start: 03-16-2022 End: 03-13-2023 Denosumab Active 60 MG SC every 6 months March 13, 2023 1:10pm Start: 06-17-2021 End: 03-16-2022 Denosumab (Prolia) 60 mg/mL syringe Discontinued 60 MG SC June 17, 2021 1:00am March 16, 2022 11:30am fluorouracil 50 mg/ml topical cream (5 sources) Nucleoside Metabolic Inhibitor Start: 05-18-2022 Fluorouracil Active 1 APPLIC TOPICAL TWICE A DAY May 18, 2022 1:00am Magnesium Citrate,Mag Oxide (2 sources) Start: 03-13-2023 take 250 mg by mouth three times daily Magnesium Citrate,Mag Oxide Active 250 MG PO THREE TIMES A DAY March 13, 2023 12:00am metroNIDAZOLE 7.5 mg/ml topical cream (5 sources) Nitroimidazole Antimicrobial Start: 05-18-2022 Metronidazole Active 1 APPLIC TOPICAL DAILY May 18, 2022 1:00am minoxidil 20 mg/ml topical solution (6 sources) Arteriolar Vasodilator Start: 02-27-2022 Minoxidil (Rogaine) 2 % solution Active 1 ML TOPICAL DAILY February 27, 2022 12:00am Vitamins A,C,L-Cgth-Lkpftc (Preservision Areds) 14,320-226-200 ixmz-qh-mbet capsule (6 sources) Start: 02-27-2022 take 1 capsule by mouth twice daily Vitamins A,C,V-Ffni-Whnswg (Preservision Areds) 14,320-226-200 hgvx-bd-sear capsule Active 1 CAP PO TWICE A DAY February 26, 2022 11:00pm Start: 02-27-2022 take 1 capsule by [facility] twice daily Vitamins A,C,Q-Iyir-Bnlirs (Preservision Areds) 14,320-226-200 kmaa-gy-fmii capsule Active 1 CAP PO TWICE A DAY February 27, 2022 12:00am Completed/Discontinued Medications Medication Drug Class(es) Dates Sig (Normalized) Sig (Original) mupirocin 0.02 mg/mg topical ointment (5 sources) RNA Synthetase Inhibitor Antibacterial Start: 05-18-2022 End: 03-13-2023 Mupirocin Discontinued 1 APPLIC TOPICAL TWICE A DAY May 18, 2022 1:00am March 13, 2023 1:11pm Problems Active Problems Problem Classification Problem Date Documented Da te Episodic/Chronic Malignant neoplasm without specification of site (6 sources) Malignant neoplastic disease; Translations: [Malignant (primary) neoplasm, unspecified] 06-17-2021 Chronic Melanomas of skin (10 sources) Malignant melanoma of other parts of face; Translations: [Melanoma in situ, unspecified] Onset: 03-29-2018 Chronic Melanomas of skin (10 sources) H/O Malignant melanoma; Translations: [Personal history of malignant melanoma of skin] Episodic Nutritional deficiencies (8 sources) Vitamin D deficiency; Translations: [Vitamin D deficiency, unspecified] Chronic Osteoarthritis (6 sources) Arthritis; Translations: [Unspecified osteoarthritis, unspecified site] 06-17-2021 Chronic Osteoporosis (11 sources) Osteoporosis; Translations: [Age-related osteoporosis without current pathological fracture] Onset: 03-24-2025 Chronic Other bone disease and musculoskeletal deformities (3 sources) Osteopenia; Translations: [Other specified disorders of bone density and structure, unspecified site] 06-17-2021 Episodic Other upper respiratory disease (6 sources) Nasal congestion; Translations: [Nasal congestion] 06-17-2021 Episodic Residual codes; unclassified (6 sources) History of molar ; Translations: [Personal history of other complications of , childbirth and the puerperium] 06-17-2021 Episodic Unclassified (6 sources) Age more than 65 years; Translations: [Over 65 years old] 06-20-2021 Viral infection (6 sources) Disease caused by 2019-nCoV; Translations: [COVID-19] 06-17-2021 Episodic Past or Other Problems Problem Classification Problem Date Documented Da te Episodic/Chronic Other screening for suspected conditions (not mental disorders or infectious disease) (1 source) Encounter for screening mammogram for malignant neoplasm of breast; Translations: [Encounter for screening mammogram for malignant neoplasm of breast] Onset: 05-07-2024 Episodic Results Test Name Value Interpretation Reference Range Facility SCRN MAMM (CAD)W/LEDA BILATo n 04-16-2024 SCRN MAMM (CAD)W/LEDA BILAT [facility] [address] [place] [id number] SCRN MAMM (CAD)W/LEDA BILAT MR#: [id number] Acct: [id number] Name: SANDRITA BERMUDEZ Rep #: [id number] : 1945 F 78 From: Bladimir wootne MD PCP: Dr. Alistair Castillo MD Status: [facility] Study: SCRN MAMM (CAD)W/LEDA BILAT Date of Exam: 03/20 Exam# [id number] Ordering Dr: Alistair Castillo :[id number] MAMMOGRAPHY - BILATERAL SCREENING REASON FOR EXAM: Female, 78 years old. Routine annual screening examination. PERTINENT HISTORY: Non-contributory. Chronic inversion of the left areola. TECHNIQUE: Digital bilateral breast leda (3D mammographic acquisition) in the CC and MLO projections. 2-D mediolateral oblique (MLO) and craniocaudad (CC) views of both breasts were obtained. CAD: Full Field Digital Mammography with Computer Added Detection was performed. COMPARISON: Comparison is made with prior study April 12, 2023 and March 20, 2022. FINDINGS: Breast Composition: The breasts are extremely dense, which lowers the sensitivity of mammography. There are no dominant masses or suspicious calcifications. No other significant abnormalities are identified. There has been no significant change since the prior study. BI/SCRN MAMM (CAD)W/LEDA BILAT IMPRESSION: Stable bilateral screening mammogram. Yearly follow-up mammogram recommended. (A) ASSESSMENT CATEGORY: BIRADS Category 1: Negative. A letter regarding these results will be sent to the patient by the facility within 30 days. Approximately 10% of breast cancers are not detected by mammography. A normal mammogram should not delay biopsy of a clinically suspicious abnormality. [id number] Electronically Signed: Bladimir Clark MD at 14:00 EDT , CC: Dr. Alistair Castillo MD Groundsman: Signed Normal [facility] No Panel InformationOrdered By: Donn Castillo on 01-24-2023 Bordetella pertussis IgG Antibody 1.39 index 0.00-0.94 [facility] Comment on above: Negative <0.95 Equiv ocal 0.95 - 1.04 Positive >1.04Performed at: [address] [id number] Director: Dulce Maier MD, Phone: [phone] Miscellaneous Test See comment [facility] Comment on above: TEST RESULTS LIMITSB pertussis IgM Ab <1.0 index 0.0-0.9 Negative <1.0 Borderline 1.0 - 1.1 Positive >1.1 TESTING PERFORMED AT [facility]. ORIGINAL REPORT ON FILE IN LAB CONTAINS ADDITIONAL TEST SITE INFORMATION. ____ Basophil percentageOrdered B y: Dr. Castillo on 07-24-2022 Chloride [Moles/Vol] 104 mmol/L 98-107 [facility] Cholesterol [Mass/Vol] 203 mg/dL <200 [facility] Comment on above: <200 mg/dL Desirable 200-240 mg/dL Borderline >240 mg/dL High Risk Glucose [Mass/Vol] 87 mg/dL 74-106 [facility] Potassium [Moles/Vol] 4.0 mmol/L 3.5-5.1 [facility] Sodium [Moles/Vol] 136 mmol/L 136-145 [facility] Triglyceride [Mass/Vol] 103 mg/dL <199 [facility] Comment on above: The drugs N-Acetylcy steine and Metamizole may falsely depress this assay.Serum Triglycerides Reference Interval Normal <150 mg/dL Borderline high 150 - 199 mg/dL High 200 - 499 mg/dL Very High > or = 500 mg/dL Laboratory - Chemistry and C hemistry - challengeOrdered By: Dr. Castillo on 07-24-2022 CO2 [Moles/Vol] 24.0 mmol/L 21.0-32.0 [facility] Urea nitrogen/Creatinine [Mass ratio] 28.4 mg/mg 10-20 [facility] No Panel InformationOrdered By: Dr. Castillo on 07-24-2022 Estimated GFR (MDRD) Amer 135 mL/min >60 [facility] Comment on above: GFR Calc Estimated GFR (MDRD) Non-Af Amer 111 mL/min >60 [facility] Comment on above: Non- GFR Calc Ionized Calcium 5.5 mg/dL 4.5-5.6 [facility] Comment on above: Performed at: - [facility] [address] [id number] Director: Gonzalo Ramsey PhD, Phone: [phone] Parathyroid Hormone (Intact) 27.6 pg/mL 18.4-80.1 [facility] Thyroid Stimulating Hormone (TSH) 3.12 uIU/mL 0.358-3.74 [facility] Vitamin D 25-Hydroxy 49.8 ng/mL [facility] Comment on above: Vitamin D 25(OH) Sta tus Range Deficiency <20 ng/mL (50nmol/L) Insufficiency 20 - 30 ng/mL (50 - 75 nmol/L) Sufficiency 30 - 100 ng/mL (75 - 250 nmol/L) Toxicity >100 ng/mL (>250 nmol/L) Serum or plasma calcium vaa urement (mass/volume)Ordered By: Dr. Castillo on 07-24-2022 Calcium [Mass/Vol] 9.4 mg/dL 8.5-10.1 [facility] Serum or plasma cholesterol in HDL measurement (mass/volume)Ordered By: Dr. Castillo on 07-24-2022 Cholesterol in HDL [Mass/Vol] 59 mg/dL >40 [facility] Comment on above: The drugs N-Acetylcy steine and Metamizole may falsely depress this assay. Reference Range HDL <40 mg/dL Low HDL Cholesterol HDL >or= 60 mg/dL High HDL Cholesterol Serum or plasma cholesterol in VLDL measurement (mass/volume)Ordered By: Dr. Castillo on 07-24-2022 Cholesterol in VLDL [Mass/Vol] 21 mg/dL 5-40 [facility] Serum or plasma creatinine m easurement (mass/volume)Ordered By: Dr. Castillo on 07-24-2022 Creatinine [Mass/Vol] 0.56 mg/dL 0.55-1.02 [facility] Comment on above: The validity of the calculated GFR & GFRAA in patients over 70 years has not been determined. Clinical correlation is essential. Serum or plasma low density lipoprotein (LDL) cholesterol measurement (mass/volume)Ordered By: Dr. Castillo on 07-24-2022 Cholesterol in LDL [Mass/Vol] 123 mg/dL 0-130 [facility] Serum or plasma urea nitroge n measurement (mass/volume)Ordered By: Dr. Castillo on 07-24-2022 Urea nitrogen [Mass/Vol] 16 mg/dL 7-18 [facility] Thin prep Papanicolaou smear with manual screeningOrdered By: Dr. Castillo on 07-24-2022 Thin prep Papanicolaou smear with manual screening 8 5-15 [facility] Absolute lymphocyte countOrd ered By: Dr. Turpin on 05-25-2022 Lymphocytes Auto (Unsp spec) [#/Vol] 1.66 10*3/uL 0.83-4.51 [facility] Basophil percentageOrdered B y: Dr. Turpin on 05-25-2022 Basophils/100 WBC (Bld) 0.6 % 0-1 [facility] Bilirubin [Mass/Vol] 0.50 mg/dL 0.20-1.00 [facility] Comment on above: For patients on eltr ombopag therapy, use of Dimension [place] TBIL is not recommended. Chloride [Moles/Vol] 102 mmol/L 98-107 [facility] Eosinophils/100 WBC (Bld) 0.6 % 0-5 [facility] Glucose [Mass/Vol] 99 mg/dL 74-106 [facility] Neutrophils (Bld) [#/Vol] 4.5 10*3/uL 2.0-7.7 [facility] Neutrophils/100 WBC (Bld) 63.3 % 47-70 [facility] Potassium [Moles/Vol] 3.7 mmol/L 3.5-5.1 [facility] Protein [Mass/Vol] 7.9 g/dL 6.4-8.2 [facility] Sodium [Moles/Vol] 135 mmol/L 136-145 [facility] WBC (Bld) [#/Vol] 7.1 10*3/uL 4.4-11.0 [facility] Blood erythrocytes count (nu mber/volume)Ordered By: Dr. Turpin on 05-25-2022 RBC (Bld) [#/Vol] 4.42 10*6/uL 4.2-5.4 [facility] Blood hemoglobin measurement (mass/volume)Ordered By: Dr. Turpin on 05-25-2022 Hemoglobin (Bld) [Mass/Vol] 13.5 g/dL 12.0-15.0 [facility] Blood lymphocytes/100 leukoc ytesOrdered By: Dr. Turpin on 05-25-2022 Lymphocytes/100 WBC (Bld) 23.3 % 19-41 [facility] Blood monocytes/100 leukocyt esOrdered By: Dr. Turpin on 05-25-2022 Monocytes/100 WBC (Bld) 11.9 % 0-10 [facility] Blood platelet mean volumeOr dered By: Dr. Turpin on 05-25-2022 Platelet mean volume (Bld) [Entitic vol] 10.1 fL 6.2-12.0 [facility] Determination of erythrocyte mean corpuscular volume (MCV)Ordered By: Dr. Turpin on 05-25-2022 MCV (RBC) [Entitic vol] 92.5 fL 81-99 [facility] Hematocrit Auto (Bld) [Volum e fraction]Ordered By: Dr. Turpin on 05-25-2022 Hematocrit (Bld) [Volume fraction] 40.9 % 37-47 [facility] Laboratory - Chemistry and C hemistry - challengeOrdered By: Dr. Turpin on 05-25-2022 ALP [Catalytic activity/Vol] 57 U/L 45-117 [facility] ALT [Catalytic activity/Vol] 26 U/L 13-56 [facility] CO2 [Moles/Vol] 27.0 mmol/L 21.0-32.0 [facility] Globulin (S) [Mass/Vol] 4.0 g/dL 2.2-4.2 [facility] Urea nitrogen/Creatinine [Mass ratio] 23.9 mg/mg 10-20 [facility] Laboratory - Hematology and Cell countsOrdered By: Dr. Turpin on 05-25-2022 Erythrocyte distribution width (RBC) [Entitic vol] 45.3 fL 35.1-43.9 [facility] Erythrocyte distribution width (RBC) [Ratio] 13.2 % 11.6-14.6 [facility] Immature granulocytes/100 WBC (Bld) 0.300 % 0.0-0.9 [facility] Comment on above: IG% - Immature Granu locytes (promyelocytes, myelocytes and metamyelocytes) > 1% indicates that a LEFT SHIFT is Present. MCH (RBC) [Entitic mass] 30.5 pg 27.0-32.0 [facility] Nucleated RBC/100 WBC (Bld) [Ratio] 0 % 0-5 [facility] MCHC Auto (RBC) [Mass/Vol]Or dered By: Dr. Turpin on 05-25-2022 MCHC (RBC) [Mass/Vol] 33.0 g/dL 32-36 [facility] No Panel InformationOrdered By: Dr. Turpin on 05-25-2022 Estimated GFR (MDRD) Amer 110 mL/min >60 [facility] Comment on above: GFR Calc Estimated GFR (MDRD) Non-Af Amer 91 mL/min >60 [facility] Comment on above: Non- GFR Calc Platelets bldOrdered By: Dr. Turpin on 05-25-2022 Platelets (Bld) [#/Vol] 231 10*3/uL 150-450 [facility] Serum or plasma albumin ava urement (mass/volume)Ordered By: Dr. Turpin on 05-25-2022 Albumin [Mass/Vol] 3.9 g/dL 3.2-5.0 [facility] Serum or plasma albumin/glob ulin mass ratioOrdered By: Dr. Turpin on 05-25-2022 Albumin/Globulin [Mass ratio] 1.0 {ratio} 0.9-2.4 [facility] Serum or plasma calcium ava urement (mass/volume)Ordered By: Dr. Turpin on 05-25-2022 Calcium [Mass/Vol] 9.5 mg/dL 8.5-10.1 [facility] Serum or plasma creatinine m easurement (mass/volume)Ordered By: Dr. Turpin on 05-25-2022 Creatinine [Mass/Vol] 0.67 mg/dL 0.55-1.02 [facility] Comment on above: The validity of the calculated GFR & GFRAA in patients over 70 years has not been determined. Clinical correlation is essential. Serum or plasma urea nitroge n measurement (mass/volume)Ordered By: Dr. Turpin on 05-25-2022 Urea nitrogen [Mass/Vol] 16 mg/dL 7-18 [facility] Thin prep Papanicolaou smear with manual screeningOrdered By: Dr. Turpin on 05-25-2022 Thin prep Papanicolaou smear with manual screening 16 U/L 15-37 [facility] Thin prep Papanicolaou smear with manual screening 6 5-15 [facility] Thin prep Papanicolaou smear with manual screening 190 U/L 84-246 [facility] NM LYMPH NODE IMAGINGon 10 Lymphocytes Auto #/vol (Bld) * * *Final Report* * *DATE OF EXAM: Mar 29 2018 11:32AM ERIC [id number] - [place] LYMPH NODE IMAGING / REASON: LEFT CHEECK MELANOMA C43.39 * * * * Physician Interpretation * * * * CUTANEOUS LYMPHOSCINTIGRAPHYCLINICAL HISTORY: Melanoma.TECHNIQUE: 509 microcuries of filtered technetium 99m sulfur colloid was injected intradermally in four aliquots around lesion on the patient's left cheek by Dr. Garcia.FINDINGS: No discrete foci of radiopharmaceutical accumulation are identified to suggest sentinel lymph nodes. Injection site is noted.IMPRESSION: SENTINEL LYMPH NODES WAS NOT IDENTIFIED.Groundsman: CHELA Transcribe Date/Time: Mar 29 2018 1:30PDictated by : ALF BECERRIL MDThis examination was interpreted and the report reviewed and electronically signed by: ALF BECERRIL MD on Mar 29 2018 1:33PM [id number] [facility] Vital Signs Date Time Vital Sign Value Performing Clinician Aniai raymundo 03-13-2023 13:08-0400 Body height 160.[address] Donn Castillo Work Phone: [facility] 03-13-2023 13:08-0400 Body mass index (BMI) [Ratio] 22 kg/m2 Dr. Donn Castillo Work Phone: [facility] 03-13-2023 13:08-0400 Body temperature 98.1 [degF] Dr. Donn Castillo Work Phone: [facility] 03-13-2023 13:08-0400 Body weight 56.[address] Donn Castillo Work Phone: [facility] 03-13-2023 13:08-0400 Diastolic blood pressure 80 mm[Hg] Dr. Donn Castillo Work Phone: [facility] 03-13-2023 13:08-0400 Heart rate 70 /min Dr. Donn Castillo Work Phone: [facility] 03-13-2023 13:08-0400 Respiratory rate 16 /min Dr. Donn Castillo Work Phone: [facility] 03-13-2023 13:08-0400 SaO2% (BldA) [Mass fraction] 97 % Dr. Donn Castillo Work Phone: [facility] 03-13-2023 13:08-0400 Systolic blood pressure 180 mm[Hg] Dr. Donn Castillo Work Phone: [facility] 08-03-2022 13:56-0500 Body height 160.[address] Donn Castillo Work Phone: [facility] 06-05-2022 10:35-0500 Body height 160.[address] Donn Castillo Work Phone: [facility] Work Phone: 06-05-2022 10:23-0500 Body mass index (BMI) [Ratio] 21.2 kg/m2 Dr. Donn Castillo Work Phone: [facility] 06-05-2022 10:23-0500 Body temperature 98.3 [degF] Dr. Donn Castillo Work Phone: [facility] 06-05-2022 10:23-0500 Body weight 54.[address] Donn Castillo Work Phone: [facility] 06-05-2022 10:23-0500 Diastolic blood pressure 94 mm[Hg] Dr. Donn Castillo Work Phone: [facility] 06-05-2022 10:23-0500 Heart rate 107 /min Dr. Donn Castillo Work Phone: [facility] 06-05-2022 10:23-0500 Respiratory rate 16 /min Dr. Donn Castillo Work Phone: [facility] 06-05-2022 10:23-0500 SaO2% (BldA) [Mass fraction] 99 % Dr. Donn Castillo Work Phone: [facility] 06-05-2022 10:23-0500 Systolic blood pressure 169 mm[Hg] Dr. Donn Castillo Work Phone: [phone] [place] [address] 05-25-2022 10:25-0500 Body mass index (BMI) [Ratio] 21.4 kg/m2 Dr. Donn Castillo Work Phone: [phone] [address] 05-25-2022 10:25-0500 Body temperature 98.6 [degF] Dr. Donn Castillo Work Phone: [phone] [place] [address] 05-25-2022 10:25-0500 Body weight 54.[address] Donn Castillo Work Phone: [phone] [place] [address] 05-25-2022 10:25-0500 Diastolic blood pressure 106 mm[Hg] Dr. Donn Castillo Work Phone: [phone] [place] [address] 05-25-2022 10:25-0500 Heart rate 93 /min Dr. Donn Castillo Work Phone: [facility] 05-25-2022 10:25-0500 Respiratory rate 16 /min Dr. Donn Castillo Work Phone: [facility] 05-25-2022 10:25-0500 SaO2% (BldA) [Mass fraction] 100 % Dr. Donn Castillo Work Phone: [facility] 05-25-2022 10:25-0500 Systolic blood pressure 196 mm[Hg] Dr. Donn Castillo Work Phone: [phone] [place] [address] 03-16-2022 10:48-0400 Body height 160.[address] Donn Castillo Work Phone: [facility] Work Phone: 03-16-2022 10:48-0400 Body mass index (BMI) [Ratio] 21.7 kg/m2 Dr. Donn Castillo Work Phone: [facility] Work Phone: 03-16-2022 10:48-0400 Body temperature 96.2 [degF] Dr. Donn Castillo Work Phone: [facility] Work Phone: 03-16-2022 10:48-0400 Body weight 55.[address] Donn Castillo Work Phone: [facility] Work Phone: 03-16-2022 10:48-0400 Diastolic blood pressure 92 mm[Hg] Dr. Donn Castillo Work Phone: [facility] Work Phone: 03-16-2022 10:48-0400 Heart rate 92 /min Dr. Donn Castillo Work Phone: [facility] Work Phone: 03-16-2022 10:48-0400 Respiratory rate 18 /min Dr. Donn Castillo Work Phone: [facility] Work Phone: 03-16-2022 10:48-0400 SaO2% (BldA) [Mass fraction] 98 % Dr. Donn Castillo Work Phone: [facility] Work Phone: 03-16-2022 10:48-0400 Systolic blood pressure 178 mm[Hg] Dr. Donn Castillo Work Phone: [facility] Work Phone: Encounters Encounter Date Encounter Type Care Provider Facility Start: 04-02-2025 ambulatory [facility] Facility:[facility] Start: 04-16-2024 End: 04-16-2024 ambulatory Alistair Castillo Facility:[facility] Start: 09-11-2023 End: 09-11-2023 ambulatory [facility] Work Phone: Start: 09-11-2023 End: 09-11-2023 Patient encounter procedure [facility]-Radiology, [place] Work Phone: Start: 04-12-2023 End: 04-12-[address] Donn Castillo Work Phone: [facility] Work Phone: Start: 04-12-2023 End: 04-12-[address] Donn Castillo Work Phone: [facility]-Outpatient Breast Imaging Work Phone: Start: 03-13-2023 End: 03-13-[address] Donn Castillo Work Phone: [facility] Endocrinology Work Phone: Start: 01-24-2023 End: 01-24-[address] Donn Castillo Work Phone: [facility] Work Phone: Start: 01-24-2023 End: 01-24-[address] Donn Castillo Work Phone[facility] Start: 10-06-2022 End: 10-06-[address] Donn Castillo Work Phone: [facility] [place] Work Phone: Start: 08-03-2022 End: 08-03-[address] Donn Castillo Work Phone: [facility] Work Phone: Start: 08-03-2022 End: 08-03-[address] Donn Castillo Work Phone: [facility]-Outpatient Bone Densitometry Start: 07-24-2022 End: 07-24-[address] Donn Castillo Work Phone: [facility] Start: 06-05-2022 End: 06-05-[address] Donn Castillo Work Phone: [facility] Start: 06-01-2022 End: 06-01-[address] Donn Castillo Work Phone: [facility] Work Phone: Start: 06-01-2022 End: 06-01-[address] Donn Castillo Work Phone: [facility]-Cat Scan, [facility] Start: 05-25-[address] Kevin Castillo Work Phone: [facility] Start: 05-25-2022 End: 05-25-[address] Donn Castillo Work Phone: [facility] Start: 04-05-2022 End: 04-05-[address] Donn Castillo Work Phone: [facility]ocr[facility] Start: 03-20-2022 End: 03-20-[address] Donn Castillo Work Phone: [facility] Work Phone: Start: 03-20-2022 End: 03-20-[address] Donn Castillo Work Phone: [facility]-Outpatient Breast Imaging Start: 03-16-2022 End: 03-16-[address] Donn Castillo Work Phone: [facility] Start: 03-29-2018 Patient encounter [facility] Procedures Date Procedure Procedure Detail Performing Clinician Start: 09-11-2023 Plain chest X-ray Start: 04-12-2023 Screening mammography of bilateral breasts Dr. Donn Castillo Work Phone: Start: 08-03-2022 Dual energy X-ray absorptiometry Dr. Donn Castillo Work Phone: Start: 06-01-2022 CT of chest and abdomen Dr. Donn jordan Work Phone: Start: 06-01-2022 CT of soft tissues of neck with contrast Dr. Donn Castillo Work Phone: Start: 03-20-[address] Donn bran Work Phone: History of total hysterectomy H/O total hysterectomy Dr. Donn Castillo Work Phone: Plan of Treatment Date Care Activity Detail Author Start: 01-24-2023 Procedure [facility] Vitamin D, 25-hydroxy measurement [facility] Payers Date Payer Category Payer Self-pay [id number] 2015 Medicare [id number] Unknown [id number] Unknown [id number] Social History Date Type Detail Facility Start: 02-27-2022 End: 04-27-2023 Tobacco smoking status NHIS Unknown if ever smoked [facility] Start: 1945 Sex Assigned At Female W [facility] Evaluation note Note Date & Type Note Facility Evaluation note Diagnosis Onset Date Osteoporosis acute Vitamin D deficiency acute [facility] Work Phone: Evaluation note Note Date & Type Note Facility Evaluation note Diagnosis Onset Date Osteoporosis acute Vitamin D deficiency acute Melanoma in situ acute Hx of malignant melanoma chr onic Melanoma in situ acute Hx of malignant melanoma chr onic [facility] Work Phone: Evaluation note Note Date & Type Note Facility Evaluation note Diagnosis Onset Date Melanoma in situ acute Hx of malignant melanoma chr onic Melanoma in situ acute Hx of malignant melanoma chr onic [facility] Work Phone: Evaluation note Note Date & Type Note Facility Evaluation note Diagnosis Onset Date Osteoporosis acute [facility] Work Phone: Evaluation note Note Date & Type Note Facility Evaluation note Diagnosis Onset Date Osteoporosis chronic [facility] Work Phone: Evaluation note Note Date & Type Note Facility Evaluation note No assessment information availa ble [facility] Work Phone: Summary Purpose Family History No Family History Records Found Relationship Condition Age at Onset Recorded Date/T ely Not Specified Malignant neoplasm of skin Unknown Diabetes mellitus Unknown Osteoporosis Unknown Congestive heart failure Unknown Arthritis Unknown Cardiac disease Unknown Seizure Unknown Malignant neoplasm of lung Unknown Malignant neoplasm Unknown Cerebrovascular accident (CVA) Unknown Relationship Condition Age at Onset Recorded Date/T ely Not Specified Malignant neoplasm of skin Unknown Osteoporosis Unknown Arthritis Unknown Cardiac disease Unknown Seizure Unknown Malignant neoplasm of lung Unknown Malignant neoplasm Unknown Cerebrovascular accident (CVA) Unknown father Diabetes mellitus Unknown Congestive heart failure Unknown Advance Directives No Advanced Directives Records FoundNo Advanced Directives Records Found Chief Complaint and Reason for Visit Chief Complaint Osteoporosis Managem ent SCREENING Reason for Visit Osteoporosis Vitamin D deficiency Chief Complaint Osteoporosis Managem ent SCREENING Prolia Injection [facility] PRIOR REVIEW CT Reason for Visit Osteoporosis Vitamin D deficiency Melanoma in situ Hx of malignant melanoma Melanoma in situ Hx of malignant melanoma Chief Complaint [facility] PRIOR REVIEW CT SCREENING Reason for Visit Melanoma in situ Hx of malignant melanoma Melanoma in situ Hx of malignant melanoma Chief Complaint Prolia Injection EORDER Reason for Visit Osteoporosis Chief Complaint EORDER 1 Y FU SCREENING Reason for Visit Osteoporosis Chief Complaint cough Additional Source Comments INFORMATION SOURCE (unrecogn ized section and content) DATE CREATED AUTHOR 05/01/2018 [facility] DATE CREATED AUTHOR AUTHOR'S ORGANIZ ATION 03/26/2025 [facility] Goals (unrecognized section and content) Goals may be documented in a n alternate sectionGoals may be documented in an alternate sectionGoals may be documented in an alternate sectionGoals may be documented in an alternate sectionGoals may be documented in an alternate sectionGoals may be documented in an alternate section Care Teams (unrecognized sec tion and content) Team Status: Active Member Role Status Dates Dr. Donn Castillo MD Family Provider Active Dr. Donn Castillo MD Primary Care Provider Activ e Team Status: Inactive Member Role Status Dates Dr. Donn Castillo MD Primary Care Provider, Refe rring Provider Active Dr. Jatinder Turpin MD Attending Provider Active Team Status: Active Member Role Status Dates Dr. Donn Castillo MD Primary Care Provider Activ e Dr. Jatinder Turpin MD Attending Provider, Referring Pro vider Active Team Status: Inactive Member Role Status Dates Dr. Donn Castillo MD Primary Care Provider Activ e Dr. Jatinder Turpin MD Attending Provider, Referring Pro vider Active Team Status: Inactive Member Role Status Dates Dr. Donn Castillo MD Primary Care Provider, Attending Provider, Referring Provider Active Team Status: Inactive Member Role Status Dates Dr. Donn Castillo MD Primary Care Provider Activ e Dr. Jos Hester MD Attending Provider Active Team Status: Inactive Member Role Status Dates Dr. Donn Castillo MD Primary Care Provider, Refe rring Provider Active Dr. Jos Hester MD Attending Provider Active Team Status: Inactive Member Role Status Dates Dr. Donn Castillo MD Primary Care Provider Activ e Dr. Maria Elena Jordan MD Attending Provider, Referring P rovider Active FOR RECORDS PERTAINING TO PATIENTS WHO ARE OR HAVE BEEN ENROLLED IN A CHEMICAL DEPENDENCY/SUBSTANCEABUSE PROGRAM, SOME INFORMATION MAY BE OMITTED. This clinical summary was aggregated from multiple sources. Caution should be exercised in using it in the provision of clinical care. This summary normalizes information from multiple sources, and as a consequence, information in this document may materially change the coding, format and clinical context of patient data. In addition, data may be omitted in some cases. CLINICAL DECISIONS SHOULD BE BASED ON THE PRIMARY CLINICAL RECORDS. [employer] provides no warranty or guarantee of the accuracy or completeness of information in this document.
--- OUTSIDE RECORDS SUMMARY | 2025-04-02 13:48 | XMS RPT_ITS | CCD ---
Author Organization [facility] Care Team Providers Care Cloth Desizing Range Tender Name Role Phone Carey PRITCHARD Unavailable Unavailable Dr. Donn Castillo Primary Care Provider Dr. Donn Castillo Referring Provider Dr. Jos Hester Attending Provider Dr. Donn Castillo Primary Care Provider Dr. Donn Castillo Referring Provider Dr. Jos Hester Attending Provider Dr. Jatinder Turpin Attending Provider Dr. Donn Castillo Primary Care Provider Dr. Donn Castillo Referring Provider Dr. Donn Castillo Primary Care Provider [phone] Dr. Jos Hester Attending Provider [phone] Donn Castillo Primary Care Provider [...] 2022 10:56am Start: 02-27-2022 End: 03-16-2022 take 95458 ug by mouth once daily Biotin Discontinued 16480 MCG PO DAILY February 27, 2022 12:00am [...] TOPICAL DAILY February 27, 2022 12:00am Vitamins A,C,H-Ildr-Guqhva (Preservision Areds) 14,320-226-200 aeir-su-ltqe capsule (6 sources) Start: 02-27-2022 take 1 capsule by mouth twice daily Vitamins A,C,O-Gfbj-Jvgipk (Preservision Areds) 14,320-226-200 foic-gj-xqwa capsule Active 1 CAP PO TWICE A DAY February 26, 2022 11:00pm Start: 02-27-2022 take 1 capsule by [facility] twice daily Vitamins A,C,V-Teoy-Apaofs (Preservision Areds) 14,320-226-200 wrno-xe-fwtp capsule Active 1 CAP PO TWICE A [...] BILATo n 04-16-2024 SCRN MAMM (CAD)W/LEDA BILAT [facility] Imaging Services [address] [place] [address] [id number] SCRN MAMM (CAD)W/LEDA BILAT MR#: [id number] Acct: [id number] Name: SANDRITA BERMUDEZ Rep #: [id number] : 1945 F 78 From: Bladimir wooten MD PCP: Dr. Alistair Castillo MD Status: [facility] Study: SCRN MAMM (CAD)W/LEDA BILAT Date of Exam: 03/20 Exam# [id number] Ordering Dr: Alistair Castillo :[id number] MAMMOGRAPHY - BILATERAL SCREENING REASON FOR EXAM: [...] delay biopsy of a clinically suspicious abnormality. [id number] Electronically Signed: Bladimir Clark MD at 14:00 EDT , CC: Dr. Alistair Castillo MD Optical Laboratory Manager: Signed Normal No Panel InformationOrdered By: Donn Castillo on 01-24-2023 Bordetella pertussis IgG Antibody 1.39 index 0.00-0.94 Comment on above: Negative <0.95 Equiv ocal 0.95 - 1.04 Positive >1.04Performed at: [address] [id number] Director: Dulce Maier MD, Phone: [phone] Miscellaneous Test See comment [facility] Comment on above: TEST RESULTS LIMITSB pertussis IgM Ab <1.0 index 0.0-0.9 Negative <1.0 Borderline 1.0 - 1.1 Positive >1.1 TESTING PERFORMED AT [facility]. ORIGINAL REPORT ON FILE IN LAB CONTAINS ADDITIONAL TEST SITE INFORMATION. ____ Basophil percentageOrdered B y: Dr. Castillo on 07-24-2022 Chloride [Moles/Vol] 104 mmol/L 98-[address] [facility] Cholesterol [Mass/Vol] 203 mg/dL <200 Comment on above: <200 mg/dL Desirable 200-240 mg/dL Borderline >240 mg/dL High Risk Glucose [Mass/Vol] 87 mg/dL 74-106 [facility] Potassium [Moles/Vol] 4.0 mmol/L 3.5-5.1 Sodium [Moles/Vol] 136 mmol/L 136-145 [facility] Triglyceride [Mass/Vol] 103 mg/dL <199 Comment on above: The drugs N-Acetylcy steine and Metamizole may falsely depress this assay.Serum Triglycerides Reference Interval Normal <150 mg/dL Borderline high 150 - 199 mg/dL High 200 - 499 mg/dL Very High > or = 500 mg/dL Laboratory - Chemistry and C hemistry - challengeOrdered By: Dr. Castillo on 07-24-2022 CO2 [Moles/Vol] 24.0 mmol/L 21.0-32.0 Urea nitrogen/Creatinine [Mass ratio] 28.4 mg/mg 10-20 No Panel InformationOrdered By: Dr. Castillo on 07-24-2022 Estimated GFR (MDRD) Amer 135 mL/min >60 Comment on above: GFR Calc Estimated GFR (MDRD) Non-Af Amer 111 mL/min >60 Comment on above: Non- GFR Calc Ionized Calcium 5.5 mg/dL 4.5-5.6 Comment on above: Performed at: - [facility] [address] [id number] Director: Gonzalo Ramsey PhD, Phone: [phone] Parathyroid Hormone (Intact) 27.6 pg/mL 18.4-80.1 Thyroid Stimulating Hormone (TSH) 3.12 uIU/mL 0.358-3.74 Vitamin D 25-Hydroxy 49.8 ng/mL [facility] Comment on above: Vitamin D 25(OH) Sta tus Range Deficiency <20 ng/mL (50nmol/L) Insufficiency 20 - 30 ng/mL (50 - 75 nmol/L) Sufficiency 30 - 100 ng/mL (75 - 250 nmol/L) Toxicity >100 ng/mL (>250 nmol/L) Serum or plasma calcium ava urement (mass/volume)Ordered By: Dr. Castillo on 07-24-2022 Calcium [Mass/Vol] 9.4 mg/dL 8.5-10.1 [facility] Serum or plasma cholesterol in HDL measurement (mass/volume)Ordered By: Dr. Castillo on 07-24-2022 Cholesterol in HDL [Mass/Vol] 59 mg/dL >40 Comment on above: The drugs N-Acetylcy steine and Metamizole may falsely depress this assay. Reference Range HDL <40 mg/dL Low HDL Cholesterol HDL >or= 60 mg/dL High HDL Cholesterol Serum or plasma cholesterol in VLDL measurement (mass/volume)Ordered By: Dr. Castillo on 07-24-2022 Cholesterol in VLDL [Mass/Vol] 21 mg/dL 5-40 Serum or plasma creatinine m easurement (mass/volume)Ordered By: Dr. Castillo on 07-24-2022 Creatinine [Mass/Vol] 0.56 mg/dL 0.55-1.02 Comment on above: The validity of the calculated GFR & GFRAA in patients over 70 years has not been determined. Clinical correlation is essential. Serum or plasma low density lipoprotein (LDL) cholesterol measurement (mass/volume)Ordered By: Dr. Castillo on 07-24-2022 Cholesterol in LDL [Mass/Vol] 123 mg/dL 0-130 Serum or plasma urea nitroge n measurement (mass/volume)Ordered By: Dr. Castillo on 07-24-2022 Urea nitrogen [Mass/Vol] 16 mg/dL 7-18 Thin prep Papanicolaou smear with manual screeningOrdered By: Dr. Castillo on 07-24-2022 Thin prep Papanicolaou smear with manual screening 8 5-15 Absolute lymphocyte countOrd ered By: Dr. Turpin on 05-25-2022 Lymphocytes Auto (Unsp spec) [#/Vol] 1.66 10*3/uL 0.83-4.51 Basophil percentageOrdered B y: Dr. Turpin on 05-25-2022 Basophils/100 WBC (Bld) 0.6 % 0-1 Bilirubin [Mass/Vol] 0.50 mg/dL 0.20-1.[address] [facility] Comment on above: For patients on eltr ombopag therapy, use of Dimension [place] TBIL is not recommended. Chloride [Moles/Vol] 102 mmol/L 98-[address] [facility] Eosinophils/100 WBC (Bld) 0.6 % 0-5 Glucose [Mass/Vol] 99 mg/dL 74-106 [facility] Neutrophils (Bld) [#/Vol] 4.5 10*3/uL 2.0-7.7 Neutrophils/100 WBC (Bld) 63.3 % 47-70 Potassium [Moles/Vol] 3.7 mmol/L 3.5-5.1 Protein [Mass/Vol] 7.9 g/dL 6.4-8.2 [facility] Sodium [Moles/Vol] 135 mmol/L 136-145 [facility] WBC (Bld) [#/Vol] 7.1 10*3/uL 4.4-11.0 [facility] Blood erythrocytes count (nu mber/volume)Ordered By: Dr. Turpin on 05-25-2022 RBC (Bld) [#/Vol] 4.42 10*6/uL 4.2-5.4 [facility] Blood hemoglobin measurement (mass/volume)Ordered By: Dr. Turpin on 05-25-2022 Hemoglobin (Bld) [Mass/Vol] 13.5 g/dL 12.0-15.0 Blood lymphocytes/100 leukoc ytesOrdered By: Dr. Turpin on 05-25-2022 Lymphocytes/100 WBC (Bld) 23.3 % 19-41 Blood monocytes/100 leukocyt esOrdered By: Dr. Turpin on 05-25-2022 Monocytes/100 WBC (Bld) 11.9 % 0-10 Blood platelet mean volumeOr dered By: Dr. Turpin on 05-25-2022 Platelet mean volume (Bld) [Entitic vol] 10.1 fL 6.2-12.0 Determination of erythrocyte mean corpuscular volume (MCV)Ordered By: Dr. Turpin on 05-25-2022 MCV (RBC) [Entitic vol] 92.5 fL 81-99 Hematocrit Auto (Bld) [Volum e fraction]Ordered By: Dr. Turpin on 05-25-2022 Hematocrit (Bld) [Volume fraction] 40.9 % 37-47 Laboratory - Chemistry and C hemistry - challengeOrdered By: Dr. Turpin on 05-25-2022 ALP [Catalytic activity/Vol] 57 U/L 45-117 ALT [Catalytic activity/Vol] 26 U/L 13-56 CO2 [Moles/Vol] 27.0 mmol/L 21.0-32.0 Globulin (S) [Mass/Vol] 4.0 g/dL 2.2-4.2 Urea nitrogen/Creatinine [Mass ratio] 23.9 mg/mg 10-20 Laboratory - Hematology and Cell countsOrdered By: Dr. Turpin on 05-25-2022 Erythrocyte distribution width (RBC) [Entitic vol] 45.3 fL 35.1-43.9 Erythrocyte distribution width (RBC) [Ratio] 13.2 % 11.6-14.6 Immature granulocytes/100 WBC (Bld) 0.300 % 0.0-0.9 Comment on above: IG% - Immature Granu locytes (promyelocytes, myelocytes and metamyelocytes) > 1% indicates that a LEFT SHIFT is Present. MCH (RBC) [Entitic mass] 30.5 pg 27.0-32.0 Nucleated RBC/100 WBC (Bld) [Ratio] 0 % 0-5 MCHC Auto (RBC) [Mass/Vol]Or dered By: Dr. Turpin on 05-25-2022 MCHC (RBC) [Mass/Vol] 33.0 g/dL 32-36 No Panel InformationOrdered By: Dr. Turpin on 05-25-2022 Estimated GFR (MDRD) Amer 110 mL/min >60 Comment on above: GFR Calc Estimated GFR (MDRD) Non-Af Amer 91 mL/min >60 Comment on above: Non- GFR Calc Platelets bldOrdered By: Dr. Turpin on 05-25-2022 Platelets (Bld) [#/Vol] 231 10*3/uL 150-450 Serum or plasma albumin ava urement (mass/volume)Ordered By: Dr. Turpin on 05-25-2022 Albumin [Mass/Vol] 3.9 g/dL 3.2-5.0 [facility] Serum or plasma albumin/glob ulin mass ratioOrdered By: Dr. Turpin on 05-25-2022 Albumin/Globulin [Mass ratio] 1.0 {ratio} 0.9-2.4 Serum or plasma calcium ava urement (mass/volume)Ordered By: Dr. Turpin on 05-25-2022 Calcium [Mass/Vol] 9.5 mg/dL 8.5-10.1 [facility] Serum or plasma creatinine m easurement (mass/volume)Ordered By: Dr. Turpin on 05-25-2022 Creatinine [Mass/Vol] 0.67 mg/dL 0.55-1.02 Comment on above: The validity of the calculated GFR & GFRAA in patients over 70 years has not been determined. Clinical correlation is essential. Serum or plasma urea nitroge n measurement (mass/volume)Ordered By: Dr. Turpin on 05-25-2022 Urea nitrogen [Mass/Vol] 16 mg/dL 7-18 Thin prep Papanicolaou smear with manual screeningOrdered By: Dr. Turpin on 05-25-2022 Thin prep Papanicolaou smear with manual screening 16 U/L 15-37 Thin prep Papanicolaou smear with manual screening 6 5-15 Thin prep Papanicolaou smear with manual screening 190 U/L 84-246 [facility] LYMPH NODE IMAGINGon 10 Lymphocytes Auto #/vol (Bld) * * *Final Report* * *DATE OF EXAM: Mar 29 2018 11:32AM ERIC [id number] - [place] LYMPH NODE IMAGING / REASON: LEFT CHEECK [...] is noted.IMPRESSION: SENTINEL LYMPH NODES WAS NOT IDENTIFIED.Optical Laboratory Manager: CHELA Transcribe Date/Time: Mar 29 2018 1:30PDictated by : ALF BECERRIL MDThis examination was interpreted and the report reviewed and electronically signed by: ALF BECERRIL MD on Mar 29 2018 1:33PM [id number] [facility] Vital Signs Date Time Vital Sign Value Performing Clinician Aniai raymundo 03-13-2023 13:08-0400 Body height 160.[address] Donn Castillo Work Phone: 03-13-2023 13:08-0400 Body mass index (BMI) [Ratio] 22 kg/m2 Dr. Donn Castillo Work Phone: 03-13-2023 13:08-0400 Body temperature 98.1 [degF] Dr. Donn Castillo Work Phone: 03-13-2023 13:08-0400 Body weight 56.[address] Donn Castillo Work Phone: 03-13-2023 13:08-0400 Diastolic blood pressure 80 mm[Hg] Dr. Donn Castillo Work Phone: 03-13-2023 13:08-0400 Heart rate 70 /min Dr. Donn Castillo Work Phone: 03-13-2023 13:08-0400 Respiratory rate 16 /min Dr. Donn Castillo Work Phone: 03-13-2023 13:08-0400 SaO2% (BldA) [Mass fraction] 97 % Dr. Donn Castillo Work Phone: 03-13-2023 13:08-0400 Systolic blood pressure 180 mm[Hg] Dr. Donn Castillo Work Phone: 08-03-2022 13:56-0500 Body height 160.[address] Donn Castillo Work Phone: 06-05-2022 10:35-0500 Body height 160.[address] Donn Castillo Work Phone: Work Phone: 06-05-2022 10:23-0500 Body mass index (BMI) [Ratio] 21.2 kg/m2 Dr. Donn Castillo Work Phone: 06-05-2022 10:23-0500 Body temperature 98.3 [degF] Dr. Donn Castillo Work Phone: 06-05-2022 10:23-0500 Body weight 54.[address] Donn Castillo Work Phone: 06-05-2022 10:23-0500 Diastolic blood pressure 94 mm[Hg] Dr. Donn Castillo Work Phone: 06-05-2022 10:23-0500 Heart rate 107 /min Dr. Donn Castillo Work Phone: 06-05-2022 10:23-0500 Respiratory rate 16 /min Dr. Donn Castillo Work Phone: 06-05-2022 10:23-0500 SaO2% (BldA) [Mass fraction] 99 % Dr. Donn Castillo Work Phone: 06-05-2022 10:23-0500 Systolic blood pressure 169 mm[Hg] Dr. Donn Castillo Work Phone: [phone] [place] [address] 05-25-2022 10:25-0500 Body mass index (BMI) [Ratio] 21.4 kg/m2 Dr. Donn Castillo Work Phone: [phone] [address] 05-25-2022 10:25-0500 Body temperature 98.6 [degF] Dr. Donn Castillo Work Phone: [phone] [place] [address] 05-25-2022 10:25-0500 Body weight 54.[address] Donn Castillo Work Phone: [phone] [place] [address] 05-25-2022 10:25-0500 Diastolic blood pressure 106 mm[Hg] Dr. Donn Castillo Work Phone: [phone])[phone] [place] [address] 05-25-2022 10:25-0500 Heart rate 93 /min Dr. Donn Castillo Work Phone: 05-25-2022 10:25-0500 Respiratory rate 16 /min Dr. Donn Castillo Work Phone: 05-25-2022 10:25-0500 SaO2% (BldA) [Mass fraction] 100 % Dr. Donn Castillo Work Phone: 05-25-2022 10:25-0500 Systolic blood pressure 196 mm[Hg] Dr. Donn Castillo Work Phone: [phone] [place] [address] 03-16-2022 10:48-0400 Body height 160.[address] Donn Castillo Work Phone: Work Phone: 03-16-2022 10:48-0400 Body mass index (BMI) [Ratio] 21.7 kg/m2 Dr. Donn Castillo Work Phone: Work Phone: 03-16-2022 10:48-0400 Body temperature 96.2 [degF] Dr. Donn Castillo Work Phone: Work Phone: 03-16-2022 10:48-0400 Body weight 55.[address] Donn Castillo Work Phone: Work Phone: 03-16-2022 10:48-0400 Diastolic blood pressure 92 mm[Hg] Dr. Donn Castillo Work Phone: Work Phone: 03-16-2022 10:48-0400 Heart rate 92 /min Dr. Donn Castillo Work Phone: Work Phone: 03-16-2022 10:48-0400 Respiratory rate 18 /min Dr. Donn Castillo Work Phone: Work Phone: 03-16-2022 10:48-0400 SaO2% (BldA) [Mass fraction] 98 % Dr. Donn Castillo Work Phone: Work Phone: 03-16-2022 10:48-0400 Systolic blood pressure 178 mm[Hg] Dr. Donn Castillo Work Phone: Work Phone: Encounters Encounter Date Encounter Type Care Provider Facility Start: 04-02-2025 ambulatory [facility] Facility:[facility] Start: 04-16-2024 End: 04-16-2024 ambulatory Alistair Castillo Facility: Start: 09-11-2023 End: 09-11-2023 ambulatory Work Phone: Start: 09-11-2023 End: 09-11-2023 Patient encounter procedure -Radiology, [place] Work Phone: Start: 04-12-2023 End: 04-12-[address] Donn Castillo Work Phone: Work Phone: Start: 04-12-2023 End: 04-12-[address] Donn Castillo Work Phone: -Outpatient Breast Imaging Work Phone: Start: 03-13-2023 End: 03-13-[address] Donn Castillo Work Phone: [facility] Work Phone: Start: 01-24-2023 End: 01-24-[address] Donn Castillo Work Phone: Work Phone: Start: 01-24-2023 End: 01-24-[address] Don[facility] Cast[facility] Work [facility]: Start: 10-06-2022 End: 10-06-[address] Donn Castillo Work Phone: [facility] [place] Work Phone: Start: 08-03-2022 End: 08-03-[address] Donn Castillo Work Phone: Work Phone: Start: 08-03-2022 End: 08-03-[address] Donn Castillo Work Phone: -Outpatient Bone Densitometry Start: 07-24-2022 End: 07-24-[address] Donn Castillo Work Phone: -[facility] Start: 06-05-2022 End: 06-05-[address] Donn Castillo Work Phone: [facility] Start: 06-01-2022 End: 06-01-[address] Donn Castillo Work Phone: Work Phone: Start: 06-01-2022 End: 06-01-[address] Donn Castillo Work Phone: -Cat Scan, [facility] Start: 05-25-[address] Kevin Castillo Work Phone: [facility] Start: 05-25-2022 End: 05-25-[address] Donn Castillo Work Phone: [facility] Start: 04-05-2022 End: 04-05-[address] Donn Castillo Work Phone: [facility] Start: 03-20-2022 End: 03-20-[address] Donn Castillo Work Phone: Work Phone: Start: 03-20-2022 End: 03-20-[address] Donn Castillo Work Phone: -Outpatient Breast Imaging Start: 03-16-2022 End: 03-16-[address] Donn Castillo Work Phone: [facility] Start: 03-29-2018 Patient encounter [facility] Procedures Date Procedure Procedure Detail Performing [...] Phone: Start: 03-20-[address] Donn brna Work Phone: History of total hysterectomy H/O total hysterectomy Dr. Donn Castillo Work Phone: Plan of Treatment Date Care Activity Detail Author Start: 01-24-2023 Procedure [facility] Vitamin D, 25-hydroxy measurement [facility] Payers Date Payer Category Payer Self-pay [id number] 2015 Medicare [id number] Unknown [id number] Unknown [id number] Social History Date Type Detail Facility Start: 02-27-2022 End: 04-27-2023 Tobacco smoking status NHIS Unknown if ever smoked Start: 1945 Sex Assigned At Female [facility] Evaluation note Note Date & Type Note Facility Evaluation note Diagnosis Onset Date Osteoporosis acute Vitamin D deficiency acute Work Phone: Evaluation note Note Date & Type Note Facility Evaluation note Diagnosis Onset Date Osteoporosis acute Vitamin D deficiency acute Melanoma in situ acute Hx of malignant melanoma [facility] Melanoma in situ acute Hx of malignant melanoma [facility] Work Phone: Evaluation note Note Date & Type Note Facility Evaluation note Diagnosis Onset Date Melanoma in situ acute Hx of malignant melanoma [facility] Melanoma in situ acute Hx of malignant melanoma [facility] Work Phone: Evaluation note Note Date & Type Note Facility Evaluation note Diagnosis Onset Date Osteoporosis acute Work Phone: Evaluation note Note Date & Type Note Facility Evaluation note Diagnosis Onset Date Osteoporosis chronic Work Phone: Evaluation note Note Date & Type Note Facility Evaluation note No assessment information availa ble Work Phone: Summary Purpose Family History No [...] section and content) DATE CREATED AUTHOR 05/01/2018 [facility] DATE CREATED AUTHOR AUTHOR'S ORGANIZ ATION 03/26/2025 [facility] Goals (unrecognized section and content) Goals may [...] BE BASED ON THE PRIMARY CLINICAL RECORDS. [employer] provides no warranty or guarantee of the accuracy or completeness of information in this document.
== END | disposition home or self-care (01) ==
LOC: OPBD 13:27
PROVIDERS: PCP Family Medicine; Referring Provider Internal Medicine Endocrinology, Diabetes & Metabolism; Visit Provider Internal Medicine Endocrinology, Diabetes & Metabolism
DX: M81.0 Age-related osteoporosis without current pathological fracture (principal)
CPT/HCPCS: 77080

== ENCOUNTER → 2025-04-22 | Outpatient (CLI) | payer MEDICARE, SELFPAY ==
--- NOTE | 2025-04-22 15:28 | BI_ITS ---
EXAM: SCRN MAMM (CAD)W/LEDA BILAT DATE: 04/22/2025 CLINICAL HISTORY: F, Age 79 y/o , SCREENING No family history. History of prior needle aspiration. TECHNIQUE: Procedure Code: [id number] Modality: MG Procedure: SCRN MAMM (CAD)W/LEDA BILAT COMPARISON: Prior exam(s) dated April 16, 2024.. FINDINGS: TISSUE DENSITY: The breasts are extremely dense, which lowers the sensitivity of mammography. Bilateral Breast Mammographic Findings: No significant masses, calcifications or other abnormalities are identified. No suspicious masses, areas of developing architectural distortion, or suspicious calcifications. There has been no significant interval change. BI/SCRN MAMM (CAD)W/LEDA BILAT IMPRESSION: Stable bilateral screening mammogram. OVERALL FINAL ASSESSMENT BI-RADS 1: NEGATIVE. RECOMMENDATION: Routine annual follow-up in 1 Year Additional Recommendation none A letter with findings and recommendations will be mailed to the patient. Reading Location: [place]
== END | disposition home or self-care (01) ==
LOC: OPBI 15:28
PROVIDERS: PCP Family Medicine; Referring Provider Family Medicine; Visit Provider Family Medicine
DX: Z12.31 Encounter for screening mammogram for malignant neoplasm of breast (principal)
CPT/HCPCS: 77063; 77067

== ENCOUNTER → 2025-05-11 | Outpatient (CLI) | payer MEDICARE, SELFPAY | END | disposition home or self-care (01) | LOC: MTLAB 15:33 | PROVIDERS: PCP Family Medicine; Referring Provider Family Medicine; Visit Provider Family Medicine | DX: M81.0 Age-related osteoporosis without current pathological fracture (principal) | CPT/HCPCS: 36415; 80048; 82306; 84443 ==

== ENCOUNTER → 2025-05-15 | Outpatient (CLI) | payer MEDICARE, SELFPAY ==
--- OUTSIDE RECORDS SUMMARY | 2025-05-15 13:31 | XMS RPT_ITS | CCD ---
Author Organization [facility] Care Team Providers Care Customer Support Coordinator Name Role Phone Carey PRITCHARD Unavailable Unavailable Dr. Donn Castillo Primary Care Provider Dr. Donn Castillo Referring Provider Dr. Jos Hester Attending Provider Dr. Donn Castillo Primary Care Provider Dr. Donn Castillo Referring Provider Dr. Jos Hester Attending Provider Dr. Jatinder Turpin Attending Provider Dr. Donn Castillo Primary Care Provider [phone] Dr. Donn Castillo Referring Provider Dr. Donn Castillo Primary Care Provider [phone] Dr. Jos Hester Attending Provider Dr. Donn Castillo Primary Care Provider Dr. Donn Castillo Referring Provider Dr. Jos Hester Attending Provider Jos Hester Attending Unavailable Jos Hester Referring Unavailable Alistair Castillo Primary Care Unavailable Alistair Castillo Primary Care Unavailable Alistair Castillo Attending Unavailable Alistair Castillo Referring Unavailable Medications Current Medications Medication Drug Class(es) [...] 2022 10:56am Start: 02-27-2022 End: 03-16-2022 take 67719 ug by mouth once daily Biotin Discontinued 47171 MCG PO DAILY February 27, 2022 12:00am [...] TOPICAL DAILY February 27, 2022 12:00am Vitamins A,C,G-Qxgb-Qzkmch (Preservision Areds) 14,320-226-200 bevc-yf-rhmd capsule (6 sources) Start: 02-27-2022 take 1 capsule by mouth twice daily Vitamins A,C,H-Suqp-Aathua (Preservision Areds) 14,320-226-200 qymq-ip-jqzy capsule Active 1 CAP PO TWICE A DAY February 26, 2022 11:00pm Start: 02-27-20[address] [facility] twice daily Vitamins A,C,M-Cwdv-Teuxka (Preservision Areds) 14,320-226-200 pzqi-od-inhn capsule Active 1 CAP PO TWICE A DAY February 27, 2022 12:00am Completed/Discontinued Medications Medication Drug Class(es) Dates Sig (Normalized) Sig (Original) mupirocin 0.02 mg/mg topical ointment (5 sources) RNA Synthetase Inhibitor Antibacterial Start: 05-18-2022 End: 03-13-2023 Mupirocin Discontinued 1 APPLIC TOPICAL TWICE A DAY May 18, 2022 1:00am March 13, 2023 1:11pm Problems Problem Classification Problem Date Documented Da [...] [Age-related osteoporosis without current pathological fracture] Onset: 04-16-2025 Chronic Other bone disease and musculoskeletal deformities (3 sources) Osteopenia; Translations: [Other specified disorders of bone density and structure, unspecified site] 06-17-2021 Episodic Other screening for suspected conditions (not mental disorders or infectious disease) (1 source) Encounter for screening mammogram for malignant neoplasm of breast; Translations: [Encounter for screening mammogram for malignant neoplasm of breast] Onset: 04-22-2025 Episodic Other upper respiratory disease (6 sources) Nasal congestion; Translations: [Nasal congestion] 06-17-2021 Episodic Residual codes; unclassified (6 sources) History of molar ; Translations: [Personal history of other complications of , childbirth and the puerperium] 06-17-2021 Episodic Unclassified (6 sources) Age more than 65 years; Translations: [Over 65 years old] 06-20-2021 Viral infection (6 sources) Disease caused by 2019-nCoV; Translations: [COVID-19] 06-17-2021 Episodic Results Test Name Value Interpretation Reference Range Facility SCRN MAMM (CAD)W/LEDA BILATo n 04-22-2025 SCRN MAMM (CAD)W/LEDA BILAT [facility] Imaging Services [address] [place] [address] [id number] SCRN MAMM (CAD)W/LEDA BILAT MR#: [id number] Acct: [id number] Name: SANDRITA BERMUDEZ Rep #: [id number] : 1945 F [id number] From: Bladimir wooten MD PCP: Dr. Alistair Castillo MD Status: [facility] Study: SCRN MAMM (CAD)W/LEDA BILAT Date of Exam: 11/09 Exam# [id number] Ordering Dr: Alistair Castillo EXAM: SCRN MAMM (CAD)W/LEDA BILAT DATE: 04/22/2025 CLINICAL HISTORY: F, Age 79 y/o , SCREENING No family history. History of prior needle aspiration. TECHNIQUE: Procedure Code: BISMWCADBTOM Modality: MG Procedure: SCRN MAMM (CAD)W/LEDA BILAT COMPARISON: Prior exam(s) dated April 16, 2024.. FINDINGS: TISSUE DENSITY: The breasts are extremely dense, which lowers the sensitivity of mammography. Bilateral Breast Mammographic Findings: No significant masses, calcifications or other abnormalities are identified. No suspicious masses, areas of developing architectural distortion, or suspicious calcifications. There has been no significant interval change. BI/SCRN MAMM (CAD)W/LEDA BILAT IMPRESSION: Stable bilateral screening mammogram. OVERALL FINAL ASSESSMENT BI-RADS 1: NEGATIVE. RECOMMENDATION: Routine annual follow-up in 1 Year Additional Recommendation none A letter with findings and recommendations will be mailed to the patient. Reading Location: [id number] CC: Dr. Alistair Castillo MD Application Engineer: Signed Normal [facility] Dexa Bone Density Studyon Dexa Bone Density Study [facility] Imaging Services [address] [place] [address] Dexa Bone Density Study MR#: [id number] Acct: [id number] Name: SANDRITA BERMUDEZ Rep #: [id number] : 1945 F 79 From: Bladimir wooten MD PCP: Dr. Alistair Castillo MD Status: REG CLI Study: Dexa Bone Density Study Date of Exam: 04/02/25 Exam# [id number] Ordering Dr: Jos Hester MD PROCEDURE: DEXA BONE DENSITY STUDY 04/02/2025 REASON FOR EXAM: OSTEOPOROSIS F, age 79 y/o . Postmenopausal. TECHNIQUE: Procedure Code: BDDBD Modality: DX Procedure: DEXA BONE DENSITY STUDY COMPARISON: Prior study dated August 03, 2022. FINDINGS: BMD and T-SCORES Lumbar spine: 0.669 g/cm2, T-score -3.2 Levels: L1 through L4 Change from prior: Loss of 0.9%. Left femoral neck: 0.579 g/cm2, T-score -2.4 Femoral neck comparison data not recommended for monitoring change. Left total hip: 0.711 g/cm2, T-score -1.9 Change from prior: Loss of 7.6%. Right femoral neck: 0.570 g/cm2, T-score -2.5 Femoral neck comparison data not recommended for monitoring change. Right total hip: 0.708 g/cm2, T-score -1.9 Change from prior: Loss of 4.6%. The World Health Organization has defined the following categories based on bone density: Normal bone density: T-score equal to or greater than -1.0 Osteopenia: T-score between -1.0 and -2.5 Osteoporosis: T-score equal to or less than -2.5 FRAX (or Comparable) Fracture Risk Assessment: 10 Year Probability of Fracture: Major Osteoporotic Fracture: 17% Hip Fracture: 5.7% (Note: FRAX is not to be reported in setting of normal range bone density, osteoporosis on DEXA, known history of osteoporosis, prior osteoporotic hip or vertebral fracture, or for any patient undergoing pharmacological treatment for bone loss.) The National Osteoporosis Foundation (NOF) recommends pharmacological treatment for patients with a FRAX 10-year risk of 3% or higher for a hip fracture, or 20% or higher for a major osteoporotic fracture, to prevent osteoporosis and reduce fracture risk. The patient does meet the pharmacological treatment recommendations for prevention of osteoporosis. BD/Dexa Bone Density Study IMPRESSION: OSTEOPOROSIS. Recommend follow-up as clinically warranted. Reading Location: [place] [address] CC: Dr. Alistair Castillo MD; Dr. Jos Hester MD Application Engineer: Signed Normal [facility] Panel InformationOrdered By: Donn Castillo on 01-24-2023 Bordetella pertussis IgG Antibody 1.39 index 0.00-0.94 [facility] Comment on above: Negative <0.95 Equiv ocal 0.95 - 1.04 Positive >1.04Performed at: [address] [id number] Director: Dulce Maier MD, Phone: [phone] Miscellaneous Test See comment [facility] Comment on above: TEST RESULTS LIMITSB pertussis IgM Ab <1.0 index 0.0-0.9 Negative <1.0 Borderline 1.0 - 1.1 Positive >1.1 TESTING PERFORMED AT [facility]. ORIGINAL REPORT ON FILE IN LAB CONTAINS ADDITIONAL TEST SITE INFORMATION. ____ Basophil percentageOrdered B y: Dr. Castillo on 07-24-2022 Chloride [Moles/Vol] 104 mmol/L 98-107 [facility] Cholesterol [Mass/Vol] 203 mg/dL <200 [facility] Comment on above: <200 mg/dL Desirable 200-240 mg/dL Borderline >240 mg/dL High Risk Glucose [Mass/Vol] 87 mg/dL 74-106 [facility] Potassium [Moles/Vol] 4.0 mmol/L 3.5-5.1 [facility] Sodium [Moles/Vol] 136 mmol/L 136-145 [facility] Triglyceride [Mass/Vol] 103 mg/dL <199 [facility] Comment on above: The drugs N-Acetylcy steine and Metamizole may falsely depress this assay.Serum Triglycerides Reference Interval Normal <150 mg/dL Borderline high 150 - 199 mg/dL High 200 - 499 mg/dL Very High > or = 500 mg/dL Laboratory - Chemistry and C hemistry - challengeOrdered By: Dr. Castillo on 07-24-2022 CO2 [Moles/Vol] 24.0 mmol/L 21.0-32.0 [facility] Urea nitrogen/Creatinine [Mass ratio] 28.4 mg/mg 10-20 [facility] No Panel InformationOrdered By: Dr. Castillo on 07-24-2022 Estimated GFR (MDRD) Amer 135 mL/min >60 [facility] Comment on above: GFR Calc Estimated GFR (MDRD) Non-Af Amer 111 mL/min >60 [facility] Comment on above: Non- GFR Calc Ionized Calcium 5.5 mg/dL 4.5-5.6 [facility] Comment on above: Performed at: [address] [id number] Director: Gonzalo Ramsey PhD, Phone: [phone] Parathyroid Hormone (Intact) 27.6 pg/mL 18.4-80.1 [facility] Thyroid Stimulating Hormone (TSH) 3.12 uIU/mL 0.358-3.74 [facility] Vitamin D 25-Hydroxy 49.8 ng/mL [facility] Comment on above: Vitamin D 25(OH) Sta tus Range Deficiency <20 ng/mL (50nmol/L) Insufficiency 20 - 30 ng/mL (50 - 75 nmol/L) Sufficiency 30 - 100 ng/mL (75 - 250 nmol/L) Toxicity >100 ng/mL (>250 nmol/L) Serum or plasma calcium ava urement (mass/volume)Ordered By: Dr. Castillo on 07-24-2022 Calcium [Mass/Vol] 9.4 mg/dL 8.5-10.1 [facility] Serum or plasma cholesterol in HDL measurement (mass/volume)Ordered By: Dr. Castillo on 07-24-2022 Cholesterol in HDL [Mass/Vol] 59 mg/dL >40 [facility] Comment on above: The drugs N-Acetylcy steine and Metamizole may falsely depress this assay. Reference Range HDL <40 mg/dL Low HDL Cholesterol HDL >or= 60 mg/dL High HDL Cholesterol Serum or plasma cholesterol in VLDL measurement (mass/volume)Ordered By: Dr. Castillo on 07-24-2022 Cholesterol in VLDL [Mass/Vol] 21 mg/dL 5-40 [facility] Serum or plasma creatinine m easurement (mass/volume)Ordered By: Dr. Castillo on 07-24-2022 Creatinine [Mass/Vol] 0.56 mg/dL 0.55-1.02 [facility] Comment on above: The validity of the calculated GFR & GFRAA in patients over 70 years has not been determined. Clinical correlation is essential. Serum or plasma low density lipoprotein (LDL) cholesterol measurement (mass/volume)Ordered By: Dr. Castillo on 07-24-2022 Cholesterol in LDL [Mass/Vol] 123 mg/dL 0-130 [facility] Serum or plasma urea nitroge n measurement (mass/volume)Ordered By: Dr. Castilol on 07-24-2022 Urea nitrogen [Mass/Vol] 16 mg/dL 7-18 [facility] Thin prep Papanicolaou smear with manual screeningOrdered By: Dr. Castillo on 07-24-2022 Thin prep Papanicolaou smear with manual screening 8 5-15 [facility] Absolute lymphocyte countOrd ered By: Dr. Turpin on 05-25-2022 Lymphocytes Auto (Unsp spec) [#/Vol] 1.66 10*3/uL 0.83-4.51 [facility] Basophil percentageOrdered B y: Dr. Turpin on 05-25-2022 Basophils/100 WBC (Bld) 0.6 % 0-1 [facility] Bilirubin [Mass/Vol] 0.50 mg/dL 0.20-1.00 [facility] Comment on above: For patients on eltr ombopag therapy, use of Dimension [place] TBIL is not recommended. Chloride [Moles/Vol] 102 mmol/L 98-107 [facility] Eosinophils/100 WBC (Bld) 0.6 % 0-5 [facility] Glucose [Mass/Vol] 99 mg/dL 74-106 [facility] Neutrophils (Bld) [#/Vol] 4.5 10*3/uL 2.0-7.7 [facility] Neutrophils/100 WBC (Bld) 63.3 % 47-70 [facility] Potassium [Moles/Vol] 3.7 mmol/L 3.5-5.1 [facility] Protein [Mass/Vol] 7.9 g/dL 6.4-8.2 [facility] Sodium [Moles/Vol] 135 mmol/L 136-145 [facility] WBC (Bld) [#/Vol] 7.1 10*3/uL 4.4-11.0 [facility] Blood erythrocytes count (nu mber/volume)Ordered By: Dr. Turpin on 05-25-2022 RBC (Bld) [#/Vol] 4.42 10*6/uL 4.2-5.4 [facility] Blood hemoglobin measurement (mass/volume)Ordered By: Dr. Turpin on 05-25-2022 Hemoglobin (Bld) [Mass/Vol] 13.5 g/dL 12.0-15.0 [facility] Blood lymphocytes/100 leukoc ytesOrdered By: Dr. Turpin on 05-25-2022 Lymphocytes/100 WBC (Bld) 23.3 % 19-41 [facility] Blood monocytes/100 leukocyt esOrdered By: Dr. Turpin on 05-25-2022 Monocytes/100 WBC (Bld) 11.9 % 0-10 [facility] Blood platelet mean volumeOr dered By: Dr. Turpin on 05-25-2022 Platelet mean volume (Bld) [Entitic vol] 10.1 fL 6.2-12.0 [facility] Determination of erythrocyte mean corpuscular volume (MCV)Ordered By: Dr. Turpin on 05-25-2022 MCV (RBC) [Entitic vol] 92.5 fL 81-99 [facility] Hematocrit Auto (Bld) [Volum e fraction]Ordered By: Dr. Turpin on 05-25-2022 Hematocrit (Bld) [Volume fraction] 40.9 % 37-47 [facility] Laboratory - Chemistry and C hemistry - challengeOrdered By: Dr. Turpin on 05-25-2022 ALP [Catalytic activity/Vol] 57 U/L 45-117 [facility] ALT [Catalytic activity/Vol] 26 U/L 13-56 [facility] CO2 [Moles/Vol] 27.0 mmol/L 21.0-32.0 [facility] Globulin (S) [Mass/Vol] 4.0 g/dL 2.2-4.2 [facility] Urea nitrogen/Creatinine [Mass ratio] 23.9 mg/mg 10-20 [facility] Laboratory - Hematology and Cell countsOrdered By: Dr. Turpin on 05-25-2022 Erythrocyte distribution width (RBC) [Entitic vol] 45.3 fL 35.1-43.9 [facility] Erythrocyte distribution width (RBC) [Ratio] 13.2 % 11.6-14.6 [facility] Immature granulocytes/100 WBC (Bld) 0.300 % 0.0-0.9 [facility] Comment on above: IG% - Immature Granu locytes (promyelocytes, myelocytes and metamyelocytes) > 1% indicates that a LEFT SHIFT is Present. MCH (RBC) [Entitic mass] 30.5 pg 27.0-32.0 [facility] Nucleated RBC/100 WBC (Bld) [Ratio] 0 % 0-5 [facility] MCHC Auto (RBC) [Mass/Vol]Or dered By: Dr. Turpin on 05-25-2022 MCHC (RBC) [Mass/Vol] 33.0 g/dL 32-36 [facility] No Panel InformationOrdered By: Dr. Turpin on 05-25-2022 Estimated GFR (MDRD) Amer 110 mL/min >60 [facility] Comment on above: GFR Calc Estimated GFR (MDRD) Non-Af Amer 91 mL/min >60 [facility] Comment on above: Non- GFR Calc Platelets bldOrdered By: Dr. Turpin on 05-25-2022 Platelets (Bld) [#/Vol] 231 10*3/uL 150-450 [facility] Serum or plasma albumin ava urement (mass/volume)Ordered By: Dr. Turpin on 05-25-2022 Albumin [Mass/Vol] 3.9 g/dL 3.2-5.0 [facility] Serum or plasma albumin/glob ulin mass ratioOrdered By: Dr. Turpin on 05-25-2022 Albumin/Globulin [Mass ratio] 1.0 {ratio} 0.9-2.4 [facility] Serum or plasma calcium ava urement (mass/volume)Ordered By: Dr. Turpin on 05-25-2022 Calcium [Mass/Vol] 9.5 mg/dL 8.5-10.1 [facility] Serum or plasma creatinine m easurement (mass/volume)Ordered By: Dr. Turpin on 05-25-2022 Creatinine [Mass/Vol] 0.67 mg/dL 0.55-1.02 [facility] Comment on above: The validity of the calculated GFR & GFRAA in patients over 70 years has not been determined. Clinical correlation is essential. Serum or plasma urea nitroge n measurement (mass/volume)Ordered By: Dr. Turpin on 05-25-2022 Urea nitrogen [Mass/Vol] 16 mg/dL 7-18 [facility] Thin prep Papanicolaou smear with manual screeningOrdered By: Dr. Turpin on 05-25-2022 Thin prep Papanicolaou smear with manual screening 16 U/L 15-37 [facility] Thin prep Papanicolaou smear with manual screening 6 5-15 [facility] Thin prep Papanicolaou smear with manual screening 190 U/L 84-246 [facility] NM LYMPH NODE IMAGINGon 03-18 Lymphocytes Auto #/vol (Bld) * * *Final Report* * *DATE OF EXAM: Mar 29 2018 11:32AM ERIC [id number] - NM LYMPH NODE IMAGING / REASON: LEFT CHEECK [...] is noted.IMPRESSION: SENTINEL LYMPH NODES WAS NOT IDENTIFIED.Application Engineer: CHELA Transcribe Date/Time: Mar 29 2018 1:30PDictated by : ALF BECERRIL MDThis examination was interpreted and the report reviewed and electronically signed by: ALF BECERRIL MD on Mar 29 2018 1:33PM [id number] [facility] Vital Signs Date Time Vital Sign Value Performing Clinician Faci lity 03-13-2023 13:08-0400 Body height 160.[address] Donn Castillo Work Phone: [facility] 03-13-2023 13:08-0400 Body mass index (BMI) [Ratio] 22 kg/m2 Dr. Donn Castillo Work Phone: [facility] 03-13-2023 13:08-0400 Body temperature 98.1 [degF] Dr. Donn Castillo Work Phone: [facility] 03-13-2023 13:08-0400 Body weight 56.[address] Donn Castillo Work Phone: [facility] 03-13-2023 13:08-0400 Diastolic blood pressure 80 mm[Hg] Dr. Donn Castillo Work Phone: [facility] 03-13-2023 13:08-0400 Heart rate 70 /min Dr. Donn Castillo Work Phone: [facility] 03-13-2023 13:08-0400 Respiratory rate 16 /min Dr. Donn Castillo Work Phone: [facility] 03-13-2023 13:08-0400 SaO2% (BldA) [Mass fraction] 97 % Dr. Donn Castillo Work Phone: [facility] 03-13-2023 13:08-0400 Systolic blood pressure 180 mm[Hg] Dr. Donn Castillo Work Phone: [facility] 08-03-2022 13:56-0500 Body height 160.[address] Donn Castillo Work Phone: [facility] 06-05-2022 10:35-0500 Body height 160.[address] Donn Castillo Work Phone: [facility] Work Phone: 06-05-2022 10:23-0500 Body mass index (BMI) [Ratio] 21.2 kg/m2 Dr. Donn Castillo Work Phone: [facility] 06-05-2022 10:23-0500 Body temperature 98.3 [degF] Dr. Donn Castillo Work Phone: [facility] 06-05-2022 10:23-0500 Body weight 54.[address] Donn Castillo Work Phone: [facility] 06-05-2022 10:23-0500 Diastolic blood pressure 94 mm[Hg] Dr. Donn Castillo Work Phone: [facility] 06-05-2022 10:23-0500 Heart rate 107 /min Dr. Donn Castillo Work Phone: [facility] 06-05-2022 10:23-0500 Respiratory rate 16 /min Dr. Donn Castillo Work Phone: [facility] 06-05-2022 10:23-0500 SaO2% (BldA) [Mass fraction] 99 % Dr. Donn Castillo Work Phone: [facility] 06-05-2022 10:23-0500 Systolic blood pressure 169 mm[Hg] Dr. Donn Castillo Work Phone: [facility] 05-25-2022 10:25-0500 Body mass index (BMI) [Ratio] 21.4 kg/m2 Dr. Donn Castillo Work Phone: [facility] 05-25-2022 10:25-0500 Body temperature 98.6 [degF] Dr. Donn Castillo Work Phone: [facility] 05-25-2022 10:25-0500 Body weight 54.[address] Donn Castillo Work Phone: [facility] 05-25-2022 10:25-0500 Diastolic blood pressure 106 mm[Hg] Dr. Donn Castillo Work Phone: [facility] 05-25-2022 10:25-0500 Heart rate 93 /min Dr. Donn Castillo Work Phone: [facility] 05-25-2022 10:25-0500 Respiratory rate 16 /min Dr. Donn Castillo Work Phone: [facility] 05-25-2022 10:25-0500 SaO2% (BldA) [Mass fraction] 100 % Dr. Donn Castillo Work Phone: [facility] 05-25-2022 10:25-0500 Systolic blood pressure 196 mm[Hg] Dr. Donn Castillo Work Phone: [facility] 03-16-2022 10:48-0400 Body height 160.[address] Donn Castillo Work Phone: [facility] Work Phone: 03-16-2022 10:48-0400 Body mass index (BMI) [Ratio] 21.7 kg/m2 Dr. Donn Castillo Work Phone: [facility] Work Phone: 03-16-2022 10:48-0400 Body temperature 96.2 [degF] Dr. Donn Castillo Work Phone: [facility] Work Phone: 03-16-2022 10:48-0400 Body weight 55.[address] Donn Castillo Work Phone: [facility] Work Phone: 03-16-2022 10:48-0400 Diastolic blood pressure 92 mm[Hg] Dr. Donn Castillo Work Phone: [facility] Work Phone: 03-16-2022 10:48-0400 Heart rate 92 /min Dr. Donn Castillo Work Phone: [facility] Work Phone: 03-16-2022 10:48-0400 Respiratory rate 18 /min Dr. Donn Castillo Work Phone: [facility] Work Phone: 03-16-2022 10:48-0400 SaO2% (BldA) [Mass fraction] 98 % Dr. Donn Castillo Work Phone: [facility] Work Phone: 03-16-2022 10:48-0400 Systolic blood pressure 178 mm[Hg] Dr. Donn Castillo Work Phone: [facility] Work Phone: Encounters Encounter Date Encounter Type Care Provider Facility Start: 04-22-2025 ambulatory Alistair tejaday:[facility] Start: 04-02-2025 End: 04-02-2025 ambulatory Jos Hester Facility:[facility] Start: 09-11-2023 End: 09-11-2023 ambulatory [facility] Work Phone: Start: 09-11-2023 End: 09-11-2023 Patient encounter procedure [facility] Work Phone: Start: 04-12-2023 End: 04-12-[address] Donn Castillo Work Phone: [facility] Work Phone: Start: 04-12-2023 End: 04-12-[address] Donn Castillo Work Phone: [facility] Work Phone: Start: 03-13-2023 End: 03-13-[address] Donn Castillo Work Phone: [facility] Work Phone: Start: 01-24-2023 End: 01-24-[address] Donn Castillo Work Phone: [facility] Work Phone: Start: 01-24-2023 End: 01-24-[address] Donn Castillo Work Phone: [facility] Work Phone: Start: 10-06-2022 End: 10-06-[address] Donn Castillo Work Phone: [facility] Work Phone: Start: 08-03-2022 End: 08-03-[address] Donn Castillo Work Phone: [facility] Work Phone: Start: 08-03-2022 End: 08-03-[address] Donn Castillo Work Phone: [facility] Start: 07-24-2022 End: 07-24-[address] Donn Castillo Work Phone: [facility] Start: 06-05-2022 End: 06-05-[address] Donn Castillo Work Phone: [facility] Start: 06-01-2022 End: 06-01-[address] Donn Castillo Work Phone: [facility] Work Phone: Start: 06-01-2022 End: 06-01-[address] Donn Castillo Work Phone: [facility] Start: 05-25-[address] Kevin Castillo Work Phone: [facility] Start: 05-25-2022 End: 05-25-[address] Donn Castillo Work Phone: [facility] Start: 04-05-2022 End: 04-05-[address] Donn Castillo Work Phone: [facility] Start: 03-20-2022 End: 03-20-[address] Donn Castillo Work Phone: [facility] Work Phone: Start: 03-20-2022 End: 03-20-[address] Donn Castillo Work Phone: [facility] Start: 03-16-2022 End: 03-16-[address] Donn Castillo Work Phone: [facility] Start: 03-29-2018 Patient encounter [facility] Procedures Date Procedure Procedure Detail Performing [...] Care Activity Detail Author Start: 01-24-2023 Procedure [facility] Vitamin D, 25-hydroxy measurement [facility] Payers Date Payer Category Payer Self-pay [id number] 2015 Medicare [id number] Unknown [id number] Unknown [id number] Social History Date Type Detail Facility Start: 02-27-2022 End: 04-27-2023 Tobacco smoking status NHIS Unknown if ever smoked [facility] Start: 1945 Sex Assigned At Female [facility] Evaluation note Note Date & Type Note Facility Evaluation note Diagnosis Onset Date Osteoporosis acute Vitamin D deficiency acute [facility] Work Phone: Evaluation note Note Date & Type Note Facility Evaluation note Diagnosis Onset Date Osteoporosis acute Vitamin D deficiency acute Melanoma in situ acute Hx of malignant melanoma chr [facility] Melanoma in situ acute Hx of malignant melanoma chr [facility] Work Phone: Evaluation note Note Date & Type Note Facility Evaluation note Diagnosis Onset Date Melanoma in situ acute Hx of malignant melanoma chr onic Melanoma in situ acute Hx of malignant melanoma chr [facility] Work Phone: Evaluation note Note Date & Type Note Facility Evaluation note Diagnosis Onset Date Osteoporosis acute [facility] Work Phone: Evaluation note Note Date & Type Note Facility Evaluation note Diagnosis Onset Date Osteoporosis chronic [facility] Work Phone: Evaluation note Note Date & Type Note Facility Evaluation note No assessment information availa ble [facility] Work Phone: Summary Purpose Family History [...] section and content) DATE CREATED AUTHOR 05/01/2018 [facility] DATE CREATED AUTHOR AUTHOR'S ORGANIZ ATION 04/24/2025 [facility] Goals (unrecognized section and content) Goals [...] BE BASED ON THE PRIMARY CLINICAL RECORDS. [facility] [employer] [facility]. provides no warranty or guarantee of the accuracy or completeness of information in this document.
[2025-05-15 18:14] LABS: Anion Gap 10 (5-15); BUN 20 mg/dL (4-19); BUN/Creat Ratio 33.6 RATIO (10-20); Calcium,Total 9.0 mg/dL (7.6-11.0); Carbon Dioxide 24.4 mmol/L (21.0-32.0); Chloride 99 mmol/L (98-108); Glucose 88 mg/dL (70-99); Potassium 4.4 mmol/L (3.3-5.1); Vitamin D,25 Hydroxy 40.5 ng/mL (30-100)
== END | disposition home or self-care (01) ==
LOC: LAB.FUTURE 13:23
PROVIDERS: PCP Family Medicine; Visit Provider Family Medicine
DX: M81.0 Age-related osteoporosis without current pathological fracture (principal)
CPT/HCPCS: 80048; 82306; 84443